=== PATIENT | male | born 1965 | race Caucasian/White ===

== ENCOUNTER 2019-03-16 16:18 | Emergency (ER) | payer OTHER ==
[~2019-03-16 16:18] MED LIST: Iopamidol 370 76% 100 ML VIAL ONE
--- NOTE | 2019-03-16 18:18 | CT ---
CT BRAIN WITHOUT CONTRAST: HISTORY: Headache. COMPARISON: None. FINDINGS: No acute hemorrhage or infarct. No midline shift or mass effect. Ventricular size and extraaxial CSF spaces are normal. The calvarium is intact. The paranasal sinuses and mastoids are clear. IMPRESSION: No acute intracranial abnormality. POS: HOME
[2019-03-16] MEDS ORDERED: Metoclopramide HCl 10 MG/2 ML VIAL ONE (18:45)
[2019-03-16] MEDS ORDERED: diphenhydrAMINE 50 MG/ML VIAL ONE (18:45)
[2019-03-16 19:07] LABS: #Basophils 0.1 thou/uL (0.0-0.2); #Eosinphils 0.3 thou/uL (0.0-0.7); #Monocytes 0.8 thou/uL (0.11-0.59); #Neutrophils 6.6 thou/uL (1.40-6.50); %Basophils 0.7 % (0.0-1.0); %Eosinophils 3.4 % (0.0-10.0); %Lymphocytes 20.6 % (21.0-51.0); %Monocytes 7.8 % (0.0-10.0); %Neutrophils 67.5 % (42.0-75.0); Hemoglobin 16.9 g/dL (14.0-18.0); Mean Corpuscular HGB CONC 32.8 g/dL (32.0-36.0); Mean Corpuscular Hemoglobin 31.6 pg (27.0-31.0); Mean Corpuscular Volume 96.3 fL (78.0-98.0); Mean Platelet Volume 7.2 fL (7.4-10.4); Platelet Count 204 thou/uL (130-400); RBC Distribution Width 12.7 % (11.5-14.5); Red Blood Cell (RBC) Count 5.36 mill/uL (4.70-6.10); White Blood Cell (WBC) Count 9.7 thou/uL (4.8-10.8)
[2019-03-16 19:24] LABS: ALT (SGPT) 40 U/L (8-55); AST (SGOT) 25 U/L (5-34); Albumin 4.5 g/dL (3.5-5.0); Alkaline Phosphatase 90 U/L (40-110); Anion Gap 12 mmol/L (10-20); BUN (Urea Nitrogen) 9 mg/dL (8.4-25.7); Calc. Creatinine Clearance 0 mL/min (70-130); Calcium 9.3 mg/dL (7.8-10.44); Carbon Dioxide 32 mmol/L (22-29); Chloride 100 mmol/L (98-107); Estimated GFR-MDRD 76; Globulin 2.9 g/dL (2.4-3.5); Glucose 81 mg/dL (70-105); Potassium 4.3 mmol/L (3.5-5.1); Protein, Total 7.4 g/dL (6.0-8.3); Sodium 140 mmol/L (136-145)
[2019-03-16] MEDS ORDERED: Magnesium 2 GM/50 ML BAG (IN WATER) ONE (19:25)
--- NOTE | 2019-03-16 19:48 | CT ---
CT ANGIO HEAD AND NECK WITH IV CONTRAST WITH 3D RECONSTRUCTIONS: HISTORY: Slurred speech. FINDINGS: NECK: The lung apices are clear. The thyroid gland is normal in appearance. Vocal cord region appears unremarkable. Parotid and submandibular gland regions appear unremarkable. Parapharyngeal spaces are clear. 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 The right vertebral artery is slightly smaller than the left and makes a sm aller contribution to the basilar artery. On the right side the right common, internal and external carotid arteries show no significant stenos is by NASCET criteria. The left side is also unremarkable. BRAIN: The anterior and middle cerebral arteries and their branches appear normal. No evidence of any intraluminal thrombus. The basilar artery and posterior cerebral arteries are normal. IMPRESSION: Unremarkable CT angio of head and neck. POS: DAMON
[2019-03-16] MEDS ORDERED: Bupivacaine 0.5% 10 ML VIAL ONE (20:17)
[2019-03-16] MEDS ORDERED: Ketorolac Tromethamine 30 MG/ML VIAL ONE (20:17)
== END 2019-03-16 22:26 | disposition home or self-care (01) ==
LOC: ERS 16:18
DX: R51 Headache (principal); E78.5 Hyperlipidemia, unspecified; K21.9 Gastro-esophageal reflux disease without esophagitis; G43.909 Migraine, unspecified, not intractable, without status migrainosus; Z79.899 Other long term (current) drug therapy
CPT/HCPCS: 70450; 70496; 70498; 80053; 85025; 85652; 86140; 93005; 96361; 96365; 96366; 96368; 96375; J1200; J1885; J2765; J3475; J3490; Q9967

== ENCOUNTER 2019-03-18 15:50 | Observation (INO) | payer OTHER ==
[2019-03-18] MEDS ORDERED: methylPREDNISolone Sod Succ/PF 125 MG/2 ML VIAL ONE (18:08)
[2019-03-18] MEDS ORDERED: diphenhydrAMINE 50 MG/ML VIAL ONE (18:08)
[2019-03-18] MEDS ORDERED: Acetaminophen 500 MG TAB ONE (18:08)
[2019-03-18] MEDS ORDERED: Metoclopramide HCl 10 MG/2 ML VIAL ONE (18:08)
[2019-03-18] MEDS ORDERED: Ketorolac Tromethamine 30 MG/ML VIAL ONE (18:42)
[2019-03-18] MEDS ORDERED: Ondansetron PF 4 MG/2 ML Vial IVP PRN (20:40)
[2019-03-18] MEDS ORDERED: Ondansetron ODT 4 MG TAB SL PRN (20:40)
[2019-03-18] MEDS ORDERED: Acetaminophen 325 MG TAB PO PRN (20:40)
[2019-03-18 21:30] VITALS: BMI 34.2
[2019-03-18] MEDS: diphenhydrAMINE 50 MG/ML VIAL IVP SCH (23:33)
[2019-03-18] MEDS: Metoclopramide HCl 10 MG/2 ML VIAL IVP SCH (23:36)
[2019-03-18] MEDS: methylPREDNISolone Sod Succ/PF 125 MG/2 ML VIAL IVP SCH (23:40)
[2019-03-19] MEDS: diphenhydrAMINE 50 MG/ML VIAL IVP SCH (06:01)
[2019-03-19] MEDS: Metoclopramide HCl 10 MG/2 ML VIAL IVP SCH (06:04)
[2019-03-19] MEDS: methylPREDNISolone Sod Succ/PF 125 MG/2 ML VIAL IVP SCH (06:09)
[2019-03-19] MEDS ORDERED: Metoclopramide HCl 10 MG/2 ML VIAL IVP PRN (08:26)
[2019-03-19] MEDS ORDERED: diphenhydrAMINE 50 MG/ML VIAL IVP PRN (08:27)
--- NOTE | 2019-03-19 09:38 | HP ---
CHIEF COMPLAINT: Intractable headaches with failed outpatient treatment. HISTORY OF PRESENT ILLNESS: The patient is a 53-year-old male with long history of recurrent headaches with a complicated medical background, who had already been to the emergency room at [facility] the day prior and had received trigger point injections into the septal area and had a cocktail of Reglan, Solu-Medrol, Benadryl. He responded well to these until the shots finally wear off at which point, he feels his headache stems from his cervical spine into the back of his neck, became much much worse. It originally began approximately 3 weeks ago. This is not his typical migraine which has responded well to monthly shots of Emgality. Those headaches have tremendously improved and now were left with cervical occipital type headache that in this case is intractable to outpatient management. PAST MEDICAL HISTORY: As mentioned above is complicated by long history of headaches. He also has a cardiac history with coronary artery disease, GERD, hyperlipidemia, high cholesterol. PAST SURGICAL HISTORY: Includes right knee surgery, traumatic brain injury, neck surgery with possible C-spine fusion. PSYCHIATRIC HISTORY: Complicated with depression. SOCIAL HISTORY: He is . Denies alcohol use. No smoking history. Denies illegal drug use. ALLERGIES: PENICILLIN AND SULFA. THEY BOTH GAVE HIM HIVES. MEDICATIONS: His medications on admission include; 1. Flexeril 10 mg t.i.d. p.r.n. 2. Zanaflex 2 mg q.6 hours p.r.n. 3. Amitriptyline 100 mg at bedtime. 4. Crestor 40 mg at bedtime. 5. Pantoprazole 40 mg daily. 6. Sertraline 50 mg daily. 7. Carvedilol 3.125 mg daily. 8. Vitamin C 1000 mg daily. 9. Tylenol No. 3 every 6 hours p.r.n. severe pain. REVIEW OF SYSTEMS: CONSTITUTIONAL: Significant for the aforementioned headache and neck pain. Denies fever, chills, fatigue. HEENT: No sores or lesions in eyes, ears, nose, or throat. CHEST: Denies shortness of breath or cough. CARDIOVASCULAR: Denies palpitations or chest pain. GI: Denies nausea, vomiting, or diarrhea. : Denies blood in urine or stool or dysuria. MUSCULOSKELETAL: Has significant pain in his neck with stiffness. I believe he may have had a cervical fusion in the past. MUSCULOSKELETAL: No upper extremity or lower extremity aches, pains, or lesions. SKIN: Without rashes or lesions. NEUROLOGIC: He is at his baseline. It is nonfocal. He does have severe neck pain going up into the base of his skull. PHYSICAL EXAMINATION: VITAL SIGNS: At the time of admission; blood pressure 137/99, pulse 98, respirations 19, temperature 98.7. Pain scale at a 6/10 at the time of arrival to the ER. O2 saturation 95% on room air. GENERAL: This is an obese , alert male, cooperative. HEENT: Normocephalic, atraumatic. Pupils are equal, round, and reactive to light. Extraocular muscles are intact. TMs, nares, and pharynx clear. NECK: Stiff with painful muscle spasms paracervically from trapezial origins to occipital insertions with diminished range of motion. CHEST: Clear to auscultation. HEART: Regular rate and rhythm without murmur. ABDOMEN: Soft and nontender without organomegaly. : Deferred. EXTREMITIES: Without clubbing, cyanosis, or edema. Normal range of motion in upper and lower extremities. SKIN: Without acute rashes or lesions. NEUROLOGICAL: Cranial nerves are intact. Gait and cerebellar function untested. Sensory exam is grossly intact. Mental status is at baseline. Nonfocal. LABORATORY DATA: Lab work on admission, repeat CT with and without contrast recently has shown unremarkable CT angio of head and neck. This was done on 03/16/2019. CT showed no acute intracranial abnormalities. He is scheduled for an MRI. The patient's additional surgical procedure was a colonoscopy done in December of this year. I did so feel add this to a surgical experience and they did find benign polyps. ASSESSMENT: 1. Cephalic and cervical origin headaches, intractable to outpatient management. 2. History of migraine headaches, responsive to Emgality monthly. 3. History of traumatic brain injury. 4. Hypertension. PLAN: Plan will be MRI of the brain, cocktail management of his migraines, neurological consultation, and serial re-evaluation. Job ID: [id number] [facility]
[2019-03-19] MEDS ORDERED: Acetaminophen/Codeine 30-300mg Tablet PO PRN (10:42)
[2019-03-19] MEDS ORDERED: Carvedilol 6.25 MG TAB PO SCH ×2 (11:30→21:00)
--- NOTE | 2019-03-19 13:35 | MRI ---
Exam: Brain MRI without contrast HISTORY: Headache COMPARISON: None FINDINGS: Calvarial marrow signal intensity: Appropriate T1 signal Gradient echo sequence: No hemorrhage Brain parenchyma: No mass, mass effect or midline shift. Brain volume, age-appropriate. Cortical tracy-white matter differentiation: Preserved Restricted diffusion: Central arterial flow voids are maintained. Absent restricted diffusion White matter signal intensities:Minimal scattered T2, FLAIR white matter hyperintensities due to oven builder alyson small vessel ischemic changes Sinuses: Adequate aeration of the paranasal sinuses and mastoid air cells. IMPRESSION: 1. Absent restricted diffusion. No acute infarct 2. No evidence of parenchymal mass. 2. Minimal chronic small vessel ischemic changes
[2019-03-19] MEDS: methylPREDNISolone Sod Succ/PF 125 MG/2 ML VIAL IVP PRN ×2 (13:36→18:44)
--- NOTE | 2019-03-19 13:41 | MRI ---
"PRELIMINARY REPORT" MRI CERVICAL SPINE WITHOUT CONTRAST: History: Reason For Study Comparison: CT angiogram of the neck 3 days prior. Findings: Cerebellar tonsils terminate at the level of the foramen magnum. There is congenital narrowing of the cervical spinal canal. The cord is thinned at the level of C4-C5, likely mild chronic myelomalacia. Paraspinal musculature is symmetric. No adenopathy. ACDF hardware at C3-C6. Levels are as follows: C2-C3: Advanced disc desiccation. Mild uncinate process hypertrophy. No significant neural foraminal or spinal canal narrowing. Spinal canal measures approximately 8 mm. C3-C4: Large left lateral recess disc osteophyte complex. Severe left neural foraminal narrowing. Mil d uncinate process hypertrophy on the right with mild-moderate neural foraminal narrowing. Spinal canal is narrowed to approximately 6 mm. C4-C5: Large posterior osteophyte, broad-based, extending into both subforaminal zones. Moderate to s evere left and right neural foraminal narrowing. Spinal canal is narrowed to approximately 6 mm. C5-C6: Circumferential disc osteophyte complex greatest in the subforaminal zones. Moderate right hyp ertrophic facet arthropathy. Spinal canal is narrowed to approximately 6 mm with cord abutment. Moderate to severe bilateral neural foraminal narrowing. C6-C7: Moderate degenerative disc space height loss and disc desiccation. Small circumferential disc bulge. Mild effacement of ventral CSF space. Spinal canal measures approximately 9 mm. Moderate bilateral neural foraminal narrowing. Impression: 1. High-grade multilevel neural foraminal narrowing due to posterior osteophytes with high-grade nerv e root impingement. 2. Abnormal narrowing of the spinal canal from C3-C6 with cord malacia at C4-C5. Transcribed Date/Time: 03/19/2019 1:48 PM
[2019-03-19] MEDS ORDERED: Cyclobenzaprine 10 MG TAB PO SCH (15:00)
[2019-03-19 15:37] VITALS: BP 140/84; TEMP 98.1
[2019-03-19] MEDS ORDERED: Amitriptyline HCl 100 MG TAB PO SCH (21:00)
[2019-03-19] MEDS ORDERED: FLU VACC QS2019-20(6MOS UP)/PF 60 MCG/0.5 ML SYRINGE IM ONE (21:00)
[2019-03-20] MEDS ORDERED: Ascorbic Acid 500 mg Chewable Tablet PO SCH (09:00)
[2019-03-20] MEDS ORDERED: Multivitamin W/ Minerals 1 TAB PO SCH (09:00)
== END 2019-03-19 19:00 | disposition home or self-care (01) ==
LOC: ERS 15:50 → 2SW 20:32
PROVIDERS: ADMIT Specialist; ATTEND Specialist
DX: R51 Headache (principal); I25.10 Atherosclerotic heart disease of native coronary artery without angina pectoris; K21.9 Gastro-esophageal reflux disease without esophagitis; E78.5 Hyperlipidemia, unspecified; E78.00 Pure hypercholesterolemia, unspecified; F32.9 Major depressive disorder, single episode, unspecified; M25.78 Osteophyte, vertebrae; M48.02 Spinal stenosis, cervical region; Z87.820 Personal history of traumatic brain injury; Z79.899 Other long term (current) drug therapy; Z88.0 Allergy status to penicillin; Z88.2 Allergy status to sulfonamides; Z98.1 Arthrodesis status
CPT/HCPCS: 70551; 72141; 96365; 96375; 96376; G0378; J1200; J1885; J2765; J2930

== ENCOUNTER 2019-04-21 07:28 | Day surgery (SDC) | payer OTHER ==
[2019-04-18 16:12] VITALS: BMI 34.7
[2019-04-21 08:04] VITALS: BP 113/84; TEMP 98.1
--- NOTE | 2019-04-21 09:48 | RAD ---
CERVICAL MYELOGRAM: HISTORY: Cervical radiculopathy. Degenerative disc disease. EXPOSURE: 1.7 minutes. 2033.8 mGy/m2. FINDINGS: Two-view lumbar spine marketing editor radiograph demonstrates 5 lumbar-type vertebral bodies. Vacuum disc phen omenon at L3-L4. Spondylolisthesis: 4.6 mm of anterolisthesis of L4 upon L5. 4.7 mm occlusive L5 upon S1. Vertebral body height is mainta ined. No fracture. Two views cervical spine: No prevertebral soft tissue swelling. Predental space is normal. Cervical spine vertebral body height is maintained, without evidence of fracture. There are anterior transvertebral body screws with associated fusion plate from C3 through C6. Disc prosthesis at C3-C4, C4-C5 and C5-C6. Straightening of normal cervical lordosis. No evidence of fractures or malalignment. Successful lumbar puncture at the L2-L3 level. A total of 9 cc of Isovue-M 300 contrast was administe red intrathecally. The patient tolerated the procedure well. No immediate or postprocedure complication. TECHNIQUE: Consent obtained to perform a lumbar puncture for a cervical myelogram. Patient's back was evaluated. The L2-L3 level was deemed appropriate. Skin was prepped and draped in a sterile fashion. 1% lidocaine, buffered with sodium bicarbonate was used for local anesthesia. Under fluoroscopic guidanc e, a 22-gauge spinal needle was advanced into the CSF space. There is prompt flow of CSF to the hub of the needle. Via a short tubing catheter, a total of 9 cc of Isovue-M 300 contrast was administered intrathecally. Patient tolerated the procedure well. No immediate or postprocedure complications. IMPRESSION: Successful lumbar puncture for cervical myelogram. Transcribed Date/Time: 04/21/2019 10:07 AM
--- NOTE | 2019-04-21 10:00 | CT ---
CT CERVICAL MYELOGRAM: INDICATIONS: Neck pain and disc degenerative disease COMPARISON: None. TECHNIQUE: Multiple CT images were obtained of the cervical spine following the intrathecal administration of an Isovue 300 Msolution. Please see the cervical myelogram for details concerning the injection technique. Axial, coronal, and sagittal reformatted images were constructed from the raw data. FINDINGS: Visualized posterior fossa and paravertebral soft tissues: Within normal limits Lung apices: Clear. Spinal alignment: Within normal limits. Spinal instrumentation or postsurgical change: There is an ACDF spanning C3-C6 with solid osseous inc orporation of interbody fibular strut graft. The instrumentation projects in the expected position without gross evidence of complication. Craniocervical junction and C1-C2: Appears within normal limits. At C2-C3, there is no appreciable central canal or neuroforaminal narrowing.. At C3-C4, there is a residual uncovertebral hypertrophy and facet hypertrophy inducing moderate left and mild right neural foraminal narrowing. At C4-C5, there is residual uncovertebral hypertrophy and facet joint degenerative change inducing mo derate to severe right and moderate left neural foraminal narrowing. There is a residual osteophyte complex causing [id number]-[id number] central canal narrowing with mild effacement of ventral spinal cord. At C5-C6, there is a residual osteophyte complex with uncovertebral hypertrophy and facet joint degen erative change inducing severe right and mild left neural foraminal narrowing. There is also mild to moderate central canal narrowing with mild ventral effacement of the spinal cord. At C6-C7, there is a broad-based osteophyte complex with mild right neural foraminal narrowing. At C7-T1, there is no appreciable central canal or neuroforaminal narrowing. IMPRESSION: 1. ACDF spanning C3-C6 with solid osseous incorporation of interbody fibular strut graft. 2. Residual multilevel neural foraminal narrowing at C3-4 through C5-6 due to uncovertebral hypertrop hy and facet degenerative change. 3. Mild/moderate central canal narrowing at C4-5 and C5-6 with mild ventral effacement of the spinal cord due to residual osteophytes.
== END 2019-04-21 10:15 | disposition home or self-care (01) ==
LOC: RAD 07:28
PROVIDERS: ATTEND Neurological Surgery
PROC: B02B1ZZ Computerized Tomography (CT Scan) of Spinal Cord using Low Osmolar Contrast (ICD-10-PCS; principal; 2019-04-21)
DX: M50.30 Other cervical disc degeneration, unspecified cervical region (principal); M54.12 Radiculopathy, cervical region; G47.00 Insomnia, unspecified; F43.10 Post-traumatic stress disorder, unspecified; F90.9 Attention-deficit hyperactivity disorder, unspecified type; Z79.899 Other long term (current) drug therapy; Z88.0 Allergy status to penicillin; Z88.2 Allergy status to sulfonamides; Z95.5 Presence of coronary angioplasty implant and graft
CPT/HCPCS: 62302; 72126

== ENCOUNTER 2019-07-27 22:21 | Inpatient (IN) | payer OTHER ==
[2019-07-27] MEDS ORDERED: Morphine 4 MG/ML VIAL ONE (22:40)
[2019-07-27 23:01] LABS: #Eosinphils 0.4 thou/uL (0.0-0.7); #Lymphocytes 2.8 thou/uL (1.20-3.40); #Monocytes 1.1 thou/uL (0.11-0.59); #Neutrophils 8.6 thou/uL (1.40-6.50); %Basophils 0.3 % (0.0-1.0); %Eosinophils 3.2 % (0.0-10.0); %Lymphocytes 21.6 % (21.0-51.0); %Monocytes 8.3 % (0.0-10.0); %Neutrophils 66.5 % (42.0-75.0); Hemoglobin 15.7 g/dL (14.0-18.0); Mean Corpuscular HGB CONC 32.9 g/dL (32.0-36.0); Mean Corpuscular Hemoglobin 32.1 pg (27.0-31.0); Mean Corpuscular Volume 97.5 fL (78.0-98.0); Mean Platelet Volume 7.4 fL (7.4-10.4); Platelet Count 270 thou/uL (130-400); RBC Distribution Width 12.5 % (11.5-14.5); Red Blood Cell (RBC) Count 4.88 mill/uL (4.70-6.10); White Blood Cell (WBC) Count 12.9 thou/uL (4.8-10.8)
[2019-07-27 23:12] LABS: ALT (SGPT) 37 U/L (8-55); AST (SGOT) 21 U/L (5-34); Albumin 4.5 g/dL (3.5-5.0); Alkaline Phosphatase 93 U/L (40-110); Anion Gap 17 mmol/L (10-20); BUN (Urea Nitrogen) 9 mg/dL (8.4-25.7); Bilirubin, Total 0.6 mg/dL (0.2-1.2); CK (CPK) 101 U/L (30-200); Calc. Creatinine Clearance 0 mL/min (70-130); Calcium 9.5 mg/dL (7.8-10.44); Carbon Dioxide 26 mmol/L (22-29); Chloride 99 mmol/L (98-107); Estimated GFR-MDRD 77; Globulin 3.2 g/dL (2.4-3.5); Glucose 100 mg/dL (70-105); Lipase 21 U/L (8-78); Potassium 3.5 mmol/L (3.5-5.1); Protein, Total 7.7 g/dL (6.0-8.3); Sodium 138 mmol/L (136-145)
--- NOTE | 2019-07-27 23:19 | RAD ---
Frontal radiograph chest: 07/27/2019 COMPARISON: None HISTORY: Shortness of breath FINDINGS: Lungs are clear. Heart and mediastinal contours are unremarkable. IMPRESSION: No acute findings.
--- NOTE | 2019-07-27 23:26 | CT ---
CT angiogram chest: 07/27/2019 COMPARISON: None HISTORY: Chest pain with shortness of breath TECHNIQUE: Axial CT imaging at 2.5 mm intervals through the chest with IV contrast using CT angiogram protocol with coronal and sagittal 3-D reformatted imaging FINDINGS: Imaged upper abdomen grossly unremarkable. No pleural, pericardial, or mediastinal fluid no lake. Left-sided coronary arterial calcification noted. No lymphadenopathy is noted within the chest. No evidence for acute pulmonary arterial embolism. No endobronchial lesion. No acute osseous abnormal ity. No acute pulmonary parenchymal abnormality. There is a pleural-based nodule within the right upper lobe on axial image 36 measuring 7 mm, similar when compared to a CT angiogram of the neck performed 03/16/2019. Mild linear density noted within the lingula on axial image 85, suggesting scar and/or volume loss. IMPRESSION: No acute findings. No evidence for acute pulmonary arterial embolism. Incidentally noted 7 mm pulmonary nodule within the right upper lobe. Recommend follow-up chest CT in 6 months. CODE T
[2019-07-27 23:33] LABS: CKMB 1.5 ng/mL (0-6.6)
[2019-07-27 23:37] LABS: Lactic Acid 1.3 mmol/L (0.5-2.2)
[2019-07-28] MEDS ORDERED: Aspirin 325 MG TAB ONE (01:00)
[2019-07-28 01:42] LABS: Bilirubin Negative (Negative); Blood, Urine Negative (Negative); Clarity Clear (Clear); Glucose, Urine (Dipstick) Negative (Negative); Leukocyte Negative (Negative); Nitrite Negative (Negative); Protein, Urine (Dipstick) Negative (Neg-Trace); Urobilinogen 0.2 mg/dL (Less than 2)
[2019-07-28 04:21] VITALS: BMI 34.7
[2019-07-28] MEDS ORDERED: Sodium Chloride 0.9% 1,000 ML IV SCH (07:45)
[2019-07-28] MEDS ORDERED: traMADol HCl 50 MG TAB PO PRN (08:11)
[2019-07-28] MEDS ORDERED: tiZANidine HCl 4 MG TAB PO PRN (08:12)
[2019-07-28 09:29] LABS: #Basophils 0.1 thou/uL (0.0-0.2); #Eosinphils 0.4 thou/uL (0.0-0.7); #Lymphocytes 2.8 thou/uL (1.20-3.40); #Monocytes 0.9 thou/uL (0.11-0.59); %Basophils 0.8 % (0.0-1.0); %Eosinophils 3.3 % (0.0-10.0); %Lymphocytes 25.2 % (21.0-51.0); %Monocytes 7.6 % (0.0-10.0); Hemoglobin 14.1 g/dL (14.0-18.0); Mean Corpuscular HGB CONC 33.2 g/dL (32.0-36.0); Mean Corpuscular Hemoglobin 32.6 pg (27.0-31.0); Mean Platelet Volume 7.2 fL (7.4-10.4); Platelet Count 243 thou/uL (130-400); RBC Distribution Width 12.5 % (11.5-14.5); Red Blood Cell (RBC) Count 4.33 mill/uL (4.70-6.10); White Blood Cell (WBC) Count 11.1 thou/uL (4.8-10.8)
[2019-07-28 09:49] LABS: Cardiac Risk 8.4 (Less than 4.5)
--- NOTE | 2019-07-28 12:13 | NM ---
EXAM: CARDIAC SPECT HISTORY: Dyspnea, coronary artery disease, stent placement, hypertension, dyslipidemia TECHNIQUE: A myocardial perfusion scan was performed using the single isotope 1 day protocol with facundo hnetium 99m sestamibi. [10 mCi] was injected intravenously for the rest exam followed by 30 mCi for the stress study. Pharmacologic stress with adenosine was monitored and interpreted by Linda Rodgers nurse practitioner FINDINGS: Homogeneous tracer distribution is seen in the myocardial segments on stress and rest image s without fixed or reversible defects. Gated SPECT LVEF: 65% Wall motion exam: Normal IMPRESSION: Normal myocardial perfusion scan
[2019-07-28] MEDS: Aspirin Chewable 81 MG TAB PO SCH (12:39)
[2019-07-28] MEDS: Carvedilol 3.125 MG TAB PO SCH ×2 (12:39→21:00)
[2019-07-28] MEDS: Sodium Chloride 0.9% 1,000 ML IV SCH ×3 (12:40→21:04)
--- NOTE | 2019-07-28 20:07 | CON ---
DATE OF CONSULTATION: HISTORY OF PRESENT ILLNESS: Claude Scott is a 53-year-old white male, who came to the emergency room last night with complaints of body aches, cough, and shortness of breath over the last 2 weeks. He denies any fever. He had increasing orthostatic dizziness and took his blood pressures 127 on sitting and 89 on standing. He was on carvedilol, but he stopped taking it 2 weeks ago. He does have history of coronary artery disease. Apparently, he had a stent placed in [place], [place] 3 or 4 years ago. He denies any chest discomfort. He had a borderline troponin I and Cardiology was consulted. PAST MEDICAL HISTORY: Hypertension in the past, coronary artery disease, hyperlipidemia, and migraine headaches. PAST SURGICAL HISTORY: Knee surgery, repair of ruptured Achilles, cervical laminectomy, and coronary artery stent placement. MEDICATIONS: 1. Amitriptyline 100 mg at bedtime. 2. Carvedilol 3.125 b.i.d. 3. Flexeril 10 t.i.d. 4. Protonix 40 daily. 5. Seroquel 12.5 at bedtime. 6. Rosuvastatin 40 daily. 7. Sertraline 50 at bedtime. ALLERGIES: PENICILLIN AND BACTRIM. SOCIAL HISTORY: He does not smoke. Rarely drinks. REVIEW OF SYSTEMS: Otherwise unremarkable. PHYSICAL EXAMINATION: VITAL SIGNS: Blood pressure 101/46 and pulse 78. HEENT: PERRL. NECK: Supple. CHEST: Clear. CARDIAC: S1 and S2 normal without any S3, S4, or murmurs. ABDOMEN: Obese. Normal bowel sounds. No tenderness. EXTREMITIES: Revealed no clubbing, cyanosis, or edema. NEUROLOGIC: Grossly intact. LABORATORY DATA: EKG revealed sinus tachycardia with rate of 117 per minute, possible old inferior infarction. Hemoglobin 14.1, hematocrit 42.4, white count 11,100, platelets 243,000, and D-dimer 0.81. Cholesterol 219, triglycerides 389 , HDL 26, and LDL 115 (the patient admits to not taking rosuvastatin regularly). Sodium 138, potassium 3.5, chloride 99, carbon dioxide 26, BUN 9, and creatinine 1.01. Troponin I 0.030 with 2 other troponin I's less than 0.010. The patient underwent adenosine Cardiolite testing, which revealed no evidence of ischemia. Ejection fraction was 65%. Influenza A and B are negative. IMPRESSION: 1. Shortness of breath, body aches, and orthostatic hypotension. Certainly the amitriptyline high dose may be contributing to his orthostasis. 2. History of coronary artery stent placement. Negative Cardiolite at this time. 3. Hypertension. 4. Hypercholesterolemia. PLAN: From a Cardiac standpoint, I do not feel that any further evaluation is warranted. Amitriptyline has been discontinued, this certainly may be playing a role in his orthostasis. Please contact us if there are further problems. Job ID: [id number] [facility]TD[facility]
[2019-07-28] MEDS ORDERED: Rosuvastatin 20 MG TAB PO SCH (21:00)
[2019-07-28] MEDS ORDERED: tiZANidine HCl 4 MG TAB PO SCH (21:00)
[2019-07-28] MEDS ORDERED: Zolpidem Tartrate 5 MG TAB PO SCH (21:00)
--- NOTE | 2019-07-28 21:56 | HP ---
CHIEF COMPLAINT: Shortness of breath with near-syncope and hypotension. He also had some chest pain with minimally elevated troponin and tachycardia. HISTORY OF PRESENT ILLNESS: The patient states that for approximately 2 weeks, he has been having dyspnea with minimal exertion. He was stand up quickly and nearly passed out, although he has not actually passed out. He has been dizzy and short winded. Ten days ago, he began to have body aches and a cough. Blood pressure on arrival was 89/60. He denies any fever. He also reports difficulty sleeping. He has mild pain chronically due to cervical foraminal stenosis. He rates at 2/10. Most recently, his cough was associated with body aches and shortness of breath and dizziness. During his evaluation in the emergency room on the day of admission, he had a slightly elevated D-dimer for which a CT scan was performed that failed to show any significant problems. The troponin was found to be minimally elevated, so he has been put into the hospital for further evaluation of this, although he has not had distinct chest discomfort other than with coughing. It is of note that when re-evaluating his medication, he has changed the dosage on some of his medication that has had a dramatic impact on his blood pressure. It is noteworthy that the main side effects are hypotension on both his quetiapine and his amitriptyline, these will be held to see if his blood pressure responds appropriately. This dosage change was not MD directed. 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 PAST SURGICAL HISTORY: Includes right knee surgery. Also, he has had neck surgery with possible cervical spine fusion. He has had surgery for a ruptured Achilles tendon. PAST PSYCHIATRIC HISTORY: Significant for anxiety, recurrent depression. SOCIAL HISTORY: He is . Denies alcohol use. No smoking. Denies illegal drug use. ALLERGIES: TO PENICILLIN AND SULFA. THEY BOTH GAVE HIM HIVES. MEDICATIONS ON ADMISSION: Include: 1. Cyclobenzaprine 10 mg p.r.n. 2. Pantoprazole 40 mg daily. 3. Sertraline 50 mg daily. 4. Carvedilol 3.125 mg b.i.d. 5. Tylenol No. 3 p.r.n. severe pain. 6. Quetiapine dosed originally at 25 mg daily, but he is down dosed it to 12.5 mg per day on his own. 7. Rosuvastatin 40 mg daily. 8. Testosterone 100 mg IM weekly. 9. Ajovy 225 mg injected subcu monthly. REVIEW OF SYSTEMS: CONSTITUTIONAL: He reports fatigue and dizziness, difficulty sleeping. HEENT: Denies drainage, sores or lesions in head, ears, eyes, nose, or throat. CHEST: He admits to coughing with shortness of breath, especially with minimal exertion. CARDIOVASCULAR: Denies chest pain per se or palpitations. GI: Negative for nausea, vomiting, or diarrhea. : Negative for dysuria, blood in urine or stool. MUSCULOSKELETAL: Generally weak with use. SKIN: No new rashes or lesions. NEUROLOGIC: Admits to chronic headaches that significantly improved with Ajovy. ENDOCRINE: No new swelling or no enlargement. PSYCHIATRIC: Maintains a chronic low-grade depression. Rarely reaching, what would be termed, remission. PHYSICAL EXAMINATION: At the time of admission, VITAL SIGNS: Blood pressure 140/89, pulse 118, temperature 98.3, pain scale 2/10, and O2 saturation 98% on room air. GENERAL: This is an obese, oriented, cooperative male, alert. HEENT: Normocephalic, atraumatic. Pupils are equal, round, and reactive to light. Extraocular muscles are intact. TMs, nares, and pharynx are clear. NECK: Supple. No mass. No bruits. CHEST: Clear to auscultation. HEART: Regular rate and rhythm without murmur. ABDOMEN: Obese. Unable to appreciate any organomegaly or tenderness. : Deferred. EXTREMITIES: Without clubbing, cyanosis, or edema. NEUROLOGIC: Currently unable to test gait and cerebellar function. Sensory exam is grossly intact. Mental status is significant for depression. LABORATORY DATA: Lab evaluation on admission, WBCs are 12.9, hemoglobin 15.7, hematocrit 47, and platelets 270, unremarkable diff. D-dimer slightly elevated at 0.8. Sodium 138, potassium 3.5, chloride 99, CO2 of 26, BUN 9, creatinine 1.00, GFR of 77, glucose 100, lactic acid 1.3, calcium 9.5. Liver functions unremarkable. Troponin I; one elevated at 0.03 with one, two, three, more evaluations are normal. Liver functions normal. Cortisol at 8:10 in the morning, 5.9; cholesterol total is 219; triglycerides 389; HDL is at 26; and LDL is at 115. TSH is 3.1. Urinalysis unremarkable. CT of the chest and thorax shows a small 6 to 7 mm nodule in the right upper lobe, there will need to be reassessed in 6 months. Otherwise, there are no acute findings and no PE. Chest x-ray also shows no acute disease. ASSESSMENT: 1. Orthostatic hypotension due to medication. 2. Chronic headaches. 3. Elevated troponin, possibly due to reactive tachycardia with low blood pressure. 4. Mismanagement of medication from noncompliance. 5. History of coronary artery disease. 6. Dyspnea on exertion, probably due to deconditioning and adverse reaction to mismanagement of medication. PLAN: 1. He is to hold medications that contribute to the orthostatic hypotension, i.e., amitriptyline and low-dose quetiapine. 2. Stress test to rule out cardiac disease. 3. Cardiology consultation with history of coronary artery disease. 4. Serial re-evaluation of these 2 medications. Job ID: [id number]
[2019-07-29 05:12] LABS: #Eosinphils 0.3 thou/uL (0.0-0.7); #Lymphocytes 2.2 thou/uL (1.20-3.40); #Monocytes 0.7 thou/uL (0.11-0.59); #Neutrophils 6.1 thou/uL (1.40-6.50); %Basophils 0.5 % (0.0-1.0); %Eosinophils 3.3 % (0.0-10.0); %Lymphocytes 23.4 % (21.0-51.0); %Neutrophils 64.9 % (42.0-75.0); Hemoglobin 12.9 g/dL (14.0-18.0); Mean Corpuscular HGB CONC 33.5 g/dL (32.0-36.0); Mean Corpuscular Volume 98.5 fL (78.0-98.0); Mean Platelet Volume 7.4 fL (7.4-10.4); Platelet Count 221 thou/uL (130-400); RBC Distribution Width 12.5 % (11.5-14.5); White Blood Cell (WBC) Count 9.3 thou/uL (4.8-10.8)
[2019-07-29] MEDS: Sodium Chloride 0.9% 1,000 ML IV SCH (05:47)
[2019-07-29] MEDS: Aspirin Chewable 81 MG TAB PO SCH (10:26)
[2019-07-29] MEDS: Carvedilol 3.125 MG TAB PO SCH (10:26)
--- NOTE | 2019-07-29 11:34 | EKG ---
Test Reason : Blood Pressure : / mmHG Vent. Rate : 085 BPM Atrial Rate : 085 BPM P-R Int : 162 ms QRS Dur : 076 ms QT Int : 362 ms P-R-T Axes : 048 -20 039 degrees QTc Int : 430 ms Normal sinus rhythm Low voltage QRS When compared with ECG of 27-JUL-2019 22:30, (Unconfirmed) Criteria for Inferior infarct are no longer Present Confirmed by LISETH LAL, SYovani ([id number]) on 07/29/2019 11:34:25 AM Referred By: CONRAD Confirmed By:DR. Mary CHILDERS MD
[2019-07-29 12:37] VITALS: BP 111/57; TEMP 97.6
== END 2019-07-29 13:10 | disposition home or self-care (01) | DRG 312 ==
LOC: ERS 22:21 → 2SW 07-28 01:35
PROVIDERS: ADMIT Specialist; ATTEND Specialist
DX: I95.2 Hypotension due to drugs (principal); T43.595A Adverse effect of other antipsychotics and neuroleptics, initial encounter; T43.015A Adverse effect of tricyclic antidepressants, initial encounter; I25.10 Atherosclerotic heart disease of native coronary artery without angina pectoris; K21.9 Gastro-esophageal reflux disease without esophagitis; E78.5 Hyperlipidemia, unspecified; G43.909 Migraine, unspecified, not intractable, without status migrainosus; F32.9 Major depressive disorder, single episode, unspecified; M48.02 Spinal stenosis, cervical region; G47.00 Insomnia, unspecified; R79.89 Other specified abnormal findings of blood chemistry; Z91.14 Patient's other noncompliance with medication regimen; Z88.1 Allergy status to other antibiotic agents
CPT/HCPCS: 36415; 36416; 51701; 71045; 71275; 78452; 80053; 80061; 81003; 82533; 82550; 82553; 83605; 83690; 83880; 84443; 84484; 85025; 85379; 87040; 87086; 87804; 93005; 93010; 93017; 93306; 94760; 96361; 96374; A9500; J0153; J2270; Q9967

== ENCOUNTER 2020-08-02 11:51 | Outpatient (CLI) | payer BC ==
[2020-08-03 04:20] LABS: SARS-CoV-2 PCR by NAA Not Detected (NotDetected)
== END 2020-08-02 11:52 | disposition home or self-care (01) ==
LOC: LABBT 11:51
PROVIDERS: ATTEND Specialist
DX: Z01.812 Encounter for preprocedural laboratory examination (principal); M96.1 Postlaminectomy syndrome, not elsewhere classified; G89.4 Chronic pain syndrome; M54.12 Radiculopathy, cervical region; Z20.822 Contact with and (suspected) exposure to COVID-19
CPT/HCPCS: 87635; U0003; U0005

== ENCOUNTER 2020-08-05 07:19 | Day surgery (SDC) | payer BC ==
[2020-08-03 17:11] VITALS: BMI 32.3
[2020-08-05] MEDS ORDERED: Bupivacaine PF 0.5% 30 ML VIAL ONE (08:07)
[2020-08-05] MEDS ORDERED: EPINEPHrine 1 MG/ML AMP ONE (08:07)
[2020-08-05] MEDS ORDERED: Fentanyl 100 MCG/2 ML VIAL ONE ×3 (08:30→13:44)
[2020-08-05 08:31] LABS: #Basophils 0.1 thou/uL (0.0-0.2); #Eosinphils 0.3 thou/uL (0.0-0.7); #Monocytes 0.7 thou/uL (0.11-0.59); #Neutrophils 3.8 thou/uL (1.40-6.50); %Eosinophils 3.8 % (0.0-10.0); %Lymphocytes 29.7 % (21.0-51.0); %Monocytes 10.2 % (0.0-10.0); %Neutrophils 55.3 % (42.0-75.0); Hemoglobin 15.5 g/dL (14.0-18.0); Mean Corpuscular HGB CONC 32.5 g/dL (32.0-36.0); Mean Corpuscular Hemoglobin 30.7 pg (27.0-31.0); Mean Corpuscular Volume 94.6 fL (78.0-98.0); Mean Platelet Volume 7.6 fL (7.4-10.4); Platelet Count 209 thou/uL (130-400); RBC Distribution Width 12.8 % (11.5-14.5); Red Blood Cell (RBC) Count 5.03 mill/uL (4.70-6.10); White Blood Cell (WBC) Count 6.8 thou/uL (4.8-10.8)
[2020-08-05 08:44] LABS: Anion Gap 13 mmol/L (10-20); BUN (Urea Nitrogen) 14 mg/dL (8.4-25.7); Calc. Creatinine Clearance 135 mL/min (70-130); Calcium 9.2 mg/dL (7.8-10.44); Carbon Dioxide 27 mmol/L (22-29); Chloride 103 mmol/L (98-107); Glucose 99 mg/dL (70-105); Potassium 4.7 mmol/L (3.5-5.1); Sodium 138 mmol/L (136-145)
[2020-08-05] MEDS ORDERED: Vancomycin 1 GM/200 ML BAG ONE (08:50)
[2020-08-05] MEDS ORDERED: Midazolam HCl 2 mg/2 ml Vial ONE (08:54)
[2020-08-05] MEDS ORDERED: Dexmedetomidine 200 MCG/2 ML VIAL ONE (09:00)
[2020-08-05] MEDS ORDERED: Ketamine 50 MG/ML (10ML VIAL) ONE (09:00)
[2020-08-05] MEDS ORDERED: Propofol 500 MG/50 ML VIAL ONE (09:02)
[2020-08-05] MEDS ORDERED: PROPOFOL 200 MG/20 ML VIAL ONE (09:04)
[2020-08-05] MEDS ORDERED: PROPOFOL 20 ML ONE (10:35)
[2020-08-05] MEDS ORDERED: Morphine 2 MG/ML VIAL ONE ×3 (12:07→13:03)
[2020-08-05] MEDS ORDERED: HYDROcodone/Acetaminophen 5/325 mg Tablet ONE (12:44)
[2020-08-05] MEDS ORDERED: methylPREDNISolone Sod Succ/PF 125 MG/2 ML VIAL ONE (13:44)
== END 2020-08-05 14:25 | disposition home or self-care (01) ==
LOC: SDC 07:19
PROVIDERS: ATTEND Specialist
PROC: 00HV0MZ Insertion of Neurostimulator Lead into Spinal Cord, Open Approach (ICD-10-PCS; principal; 2020-08-05)
PROC: 0JH70DZ Insertion of Multiple Array Stimulator Generator into Back Subcutaneous Tissue and Fascia, Open Approach (ICD-10-PCS; principal; 2020-08-05)
DX: M96.1 Postlaminectomy syndrome, not elsewhere classified (principal); G89.4 Chronic pain syndrome; M47.22 Other spondylosis with radiculopathy, cervical region; F43.10 Post-traumatic stress disorder, unspecified; F90.9 Attention-deficit hyperactivity disorder, unspecified type; G47.00 Insomnia, unspecified; I25.2 Old myocardial infarction; G47.30 Sleep apnea, unspecified; F17.290 Nicotine dependence, other tobacco product, uncomplicated; Z79.899 Other long term (current) drug therapy; Z88.0 Allergy status to penicillin; Z88.2 Allergy status to sulfonamides; Z95.5 Presence of coronary angioplasty implant and graft
CPT/HCPCS: 36415; 72020; 76000; 80048; 85025; 93005; 93010; C1778; C1787; J0171; J2250; J2270; J2704; J2930; J3010; J3370; L8687; L8689; S0020

== ENCOUNTER 2020-11-08 14:55 | Outpatient (CLI) | payer BC | END 2020-11-08 14:56 | disposition home or self-care (01) | LOC: BICRAD 14:55 | PROVIDERS: ATTEND Nurse Practitioner Family | DX: M25.561 Pain in right knee (principal) ==

== ENCOUNTER 2021-02-04 05:15 | Inpatient (IN) | payer BC ==
[2021-02-04] MEDS ORDERED: Aspirin 325 MG TAB ONE (05:49)
[2021-02-04 05:52] LABS: #Basophils 0.1 thou/uL (0.0-0.2); #Eosinphils 0.2 thou/uL (0.0-0.7); #Monocytes 0.6 thou/uL (0.11-0.59); #Neutrophils 4.1 thou/uL (1.40-6.50); %Basophils 0.8 % (0.0-1.0); %Eosinophils 2.9 % (0.0-10.0); %Lymphocytes 28.8 % (21.0-51.0); %Monocytes 8.6 % (0.0-10.0); %Neutrophils 58.9 % (42.0-75.0); Hemoglobin 14.7 g/dL (14.0-18.0); Mean Corpuscular HGB CONC 35.2 g/dL (32.0-36.0); Mean Corpuscular Volume 96.7 fL (78.0-98.0); Mean Platelet Volume 7.3 fL (7.4-10.4); Platelet Count 191 thou/uL (130-400); RBC Distribution Width 12.5 % (11.5-14.5); Red Blood Cell (RBC) Count 4.31 mill/uL (4.70-6.10)
[2021-02-04] MEDS ORDERED: Nitroglycerin 0.4 MG TAB 1 EACH ONE (05:56)
[2021-02-04 06:14] LABS: ALT (SGPT) 25 U/L (8-55); AST (SGOT) 20 U/L (5-34); Alkaline Phosphatase 100 U/L (40-110); Anion Gap 13 mmol/L (10-20); BUN (Urea Nitrogen) 14 mg/dL (8.4-25.7); Bilirubin, Total 0.3 mg/dL (0.2-1.2); Calc. Creatinine Clearance 0 mL/min (70-130); Calcium 9.3 mg/dL (7.8-10.44); Carbon Dioxide 25 mmol/L (22-29); Chloride 102 mmol/L (98-107); Globulin 2.8 g/dL (2.4-3.5); Glucose 114 mg/dL (70-105); Lipase 35 U/L (8-78); Potassium 3.9 mmol/L (3.5-5.1); Protein, Total 6.8 g/dL (6.0-8.3); Sodium 136 mmol/L (136-145)
[2021-02-04 06:43] LABS: CKMB 2.8 ng/mL (0-6.6)
[2021-02-04 08:45] LABS: Troponin I 0.415 ng/mL (< 0.028)
[2021-02-04 09:37] LABS: SARS-CoV-2 NAA Rapid Test Not Detected (NotDetected)
[2021-02-04] MEDS ORDERED: Nitroglycerin 0.4 MG TAB (25 Tab Bottle) SL PRN (11:55)
[2021-02-04 12:39] LABS: Troponin I 0.593 ng/mL (< 0.028)
[2021-02-04 17:13] VITALS: BMI 33.7
[2021-02-04] MEDS: HYDROcodone/Acetaminophen 10/325 mg Tablet PO PRN ×2 (17:28→23:42)
[2021-02-04] MEDS ORDERED: Enoxaparin Sodium 120 MG/0.8 ML SYRINGE SC SCH (17:45)
[2021-02-04] MEDS: Nitroglycerin 2% Ointment 1 INCH/1 GM Packet TOP SCH ×2 (18:42→23:42)
[2021-02-04] MEDS ORDERED: Carvedilol 3.125 MG TAB PO SCH (21:00)
[2021-02-04] MEDS: Zolpidem Tartrate 5 MG TAB PO SCH (21:13)
[2021-02-04] MEDS: Atorvastatin Calcium 20 MG TAB PO SCH (21:13)
[2021-02-05] MEDS: Nitroglycerin 2% Ointment 1 INCH/1 GM Packet TOP SCH ×4 (05:45→22:57)
[2021-02-05] MEDS: Enoxaparin Sodium 120 MG/0.8 ML SYRINGE SC SCH (07:59)
[2021-02-05] MEDS: Aspirin 325 MG TAB PO SCH (07:59)
[2021-02-05] MEDS: HYDROcodone/Acetaminophen 10/325 mg Tablet PO PRN ×4 (08:00→20:51)
[2021-02-05] MEDS: Zolpidem Tartrate 5 MG TAB PO SCH (20:51)
[2021-02-05] MEDS: Atorvastatin Calcium 20 MG TAB PO SCH (20:51)
[2021-02-06] MEDS: HYDROcodone/Acetaminophen 10/325 mg Tablet PO PRN ×5 (04:49→23:03)
[2021-02-06] MEDS: Nitroglycerin 2% Ointment 1 INCH/1 GM Packet TOP SCH ×3 (06:11→22:48)
[2021-02-06] MEDS: Enoxaparin Sodium 120 MG/0.8 ML SYRINGE SC SCH (09:03)
[2021-02-06] MEDS: Aspirin 325 MG TAB PO SCH (09:05)
[2021-02-06] MEDS ORDERED: Sodium Chloride 0.9% 1,000 ML IV SCH (09:15)
[2021-02-06] MEDS ORDERED: Communication Order-Pharmacy FS SCH (09:15)
[2021-02-06] MEDS: Atorvastatin Calcium 20 MG TAB PO SCH (20:26)
[2021-02-06] MEDS: Zolpidem Tartrate 5 MG TAB PO SCH (20:26)
[2021-02-07 05:55] LABS: Cardiac Risk 10.3 (Less than 4.5); Cholesterol 277 mg/dl (< 200 Desired); HDL Cholesterol 27 mg/dL (>60 Neg Risk); Triglycerides 700 mg/dL (Less than 150)
[2021-02-07] MEDS ORDERED: Sodium Chloride 0.9% 1,000 ML IV SCH ×2 (06:00→09:15)
[2021-02-07] MEDS: Nitroglycerin 2% Ointment 1 INCH/1 GM Packet TOP SCH (06:02)
[2021-02-07] MEDS ORDERED: Heparin 10,000 UNITS/ 10 ML VIAL ONE (07:23)
[2021-02-07] MEDS ORDERED: Fentanyl 100 MCG/2 ML VIAL ONE (08:06)
[2021-02-07] MEDS ORDERED: Midazolam HCl 2 mg/2 ml Vial ONE ×2 (08:06→11:39)
[2021-02-07] MEDS ORDERED: Heparin 25,000 units/D5W 500 ML ONE (08:35)
[2021-02-07] MEDS ORDERED: Aspirin 81 mg Enteric Coated Tablet PO SCH (09:00)
[2021-02-07] MEDS ORDERED: Sodium Chloride 0.9% 200 ML IV PRN (09:05)
[2021-02-07] MEDS ORDERED: Acetaminophen/Codeine 30-300mg Tablet PO PRN ×2 (09:05)
[2021-02-07] MEDS ORDERED: Nitroglycerin 0.4 MG TAB (25 Tab Bottle) SL PRN (09:05)
[2021-02-07] MEDS ORDERED: Heparin 10,000 UNITS/ 10 ML VIAL SLOW IVP SCH (09:15)
[2021-02-07] MEDS ORDERED: HYDROcodone/Acetaminophen 10/325 mg Tablet ONE (10:01)
[2021-02-07] MEDS ORDERED: Morphine 2 MG/ML VIAL ONE (10:12)
[2021-02-07] MEDS ORDERED: Communication Order-Pharmacy FS ONE (11:25)
[2021-02-07] MEDS ORDERED: Albumin 5% 500 ML ONE (11:27)
[2021-02-07] MEDS ORDERED: Levofloxacin 500 mg/D5W 100 ml Premix Bag ONE (11:35)
[2021-02-07] MEDS ORDERED: Fentanyl 250 MCG/5 ML VIAL ONE (11:39)
[2021-02-07] MEDS ORDERED: Phenylephrine 10 MG/ML VIAL ONE (11:39)
[2021-02-07] MEDS ORDERED: Thrombin 5000 UNITS/5 ML VIAL ONE (12:22)
[2021-02-07] MEDS ORDERED: Lidocaine 2% PF 100 mg/5 ml Syringe ONE (12:22)
[2021-02-07] MEDS ORDERED: Heparin 30,000 units/30 ml VIAL ONE (12:22)
[2021-02-07] MEDS ORDERED: Lidocaine 1% PF 5 ML VIAL ONE (12:22)
[2021-02-07] MEDS ORDERED: PHENYLEPHRINE-NS 100 MCG/ML 10 ML SYRINGE ONE ×2 (12:22→13:50)
[2021-02-07] MEDS ORDERED: Vecuronium 10 MG VIAL ONE (12:22)
[2021-02-07] MEDS ORDERED: PROPOFOL 200 MG/20 ML VIAL ONE (12:22)
[2021-02-07] MEDS ORDERED: Nitroglycerin 50 MG/250 ML BOT ONE (12:22)
[2021-02-07] MEDS ORDERED: Magnesium Sulfate 1 GM/2 ML VIAL ONE (12:22)
[2021-02-07] MEDS ORDERED: Rocuronium Bromide 10 MG/ML (10ML VIAL) ONE (12:22)
[2021-02-07] MEDS ORDERED: Heparin 5,000 UNITS/ML VIAL ONE (12:22)
[2021-02-07] MEDS ORDERED: Potassium Chloride 60 MEQ/30 ML VIAL ONE (12:22)
[2021-02-07] MEDS ORDERED: Cardioplegic Soln 1,000 ML BAG ONE (12:22)
[2021-02-07] MEDS ORDERED: Mannitol 12.5 GM/50 ML ONE (12:22)
[2021-02-07] MEDS ORDERED: Aminocaproic Acid 5 GM/20 ML VIAL ONE (12:22)
[2021-02-07] MEDS ORDERED: Sodium Bicarb 50 MEQ/50 ML Abboject 8.4% SYRINGE ONE ×2 (12:22→19:36)
[2021-02-07] MEDS ORDERED: Calcium Chloride 1 GM/10 ML Abboject SYRINGE ONE (12:22)
[2021-02-07] MEDS ORDERED: Papaverine 60 MG/2 ML VIAL ONE (12:22)
[2021-02-07] MEDS ORDERED: Protamine Sulfate 250 MG/25 ML VIAL ONE (12:22)
[2021-02-07] MEDS ORDERED: Iopamidol 370 76% 100 ML VIAL ONE (14:50)
[2021-02-07 16:34] LABS: Actual Bicarbonate (HCO3a) 22.6 mEq/L (22-28); Base Excess (BEa) -3.7 mEq/L (-2.0 to +3.0); CO2 Tension 45.9 mmHg (35.0-45.0); Calcium, Ionized (arterial) 1.19 mmol/L (1.12-1.30); Carboxyhemoglobin (COHb) 0.7 gm% (0.0-3.0); Hemoglobin (Hb) 14.2 g/dL (14.0-18.0); O2 Tension (PaO2), arterial 83.4 mmHg (80.0-100.0); Potassium - ABG Lab 5.21 mmol/L (3.70-5.30); pH, Arterial 7.31 (7.35-7.45)
[2021-02-07 16:36] LABS: Puncture Site Arterial Line
[2021-02-07 16:37] LABS: ALV-art Gradient 287.025 mmHg (0-20)
[2021-02-07] MEDS ORDERED: Bisacodyl 5 MG TAB PO PRN (16:48)
[2021-02-07] MEDS ORDERED: Ondansetron PF 4 MG/2 ML Vial IVP PRN (16:48)
[2021-02-07] MEDS ORDERED: DOPamine 400 MG/D5W 250 ML 250 ML IVPB PRN (16:48)
[2021-02-07] MEDS ORDERED: Norepinephrine 8 MG/0.9% NS 250 ML IVPB PRN (16:48)
[2021-02-07] MEDS ORDERED: Fentanyl 100 MCG/2 ML VIAL SLOW IVP PRN (16:48)
[2021-02-07] MEDS ORDERED: Potassium Chloride 20 MEQ/100 ML PREMIX BAG IVPB PRN (16:48)
[2021-02-07] MEDS ORDERED: Post-Op Insulin Drip Protocol IVPB ONE (16:48)
[2021-02-07] MEDS ORDERED: Mag-Al 1200 mg/1200 mg/30 ML UDCUP PO PRN (16:48)
[2021-02-07] MEDS ORDERED: hydrALAZINE 20 MG/ML VIAL SLOW IVP PRN (16:48)
[2021-02-07] MEDS ORDERED: Morphine 2 MG/ML VIAL SLOW IVP PRN (16:48)
[2021-02-07] MEDS ORDERED: Promethazine HCl 25 MG/ML VIAL IM PRN (16:48)
[2021-02-07] MEDS ORDERED: Nitroglycerin 50 MG/250 ML BOT 250 ML IVPB PRN (16:48)
[2021-02-07] MEDS ORDERED: Guaifenesin DM 100-10/5 ML UDCUP PO PRN (16:48)
[2021-02-07] MEDS ORDERED: niCARdipine 25 MG in Sodium Chloride 0.9% 250 ML 240 ML IVPB PRN (16:48)
[2021-02-07] MEDS ORDERED: Hetastarch 6% 500 ML 500 ML IVPB PRN (16:48)
[2021-02-07] MEDS ORDERED: oxyCODONE/Acetaminophen 5 mg/325 mg Tablet PO PRN (16:48)
[2021-02-07] MEDS ORDERED: Bisacodyl 10 MG SUPP PR PRN (16:48)
[2021-02-07] MEDS ORDERED: Nitroglycerin 50 MG/250 ML BOT 250 ML ONE (17:06)
[2021-02-07] MEDS: Lactated Ringer's 1,000 ML IV SCH (17:10)
[2021-02-07] MEDS ORDERED: Morphine 4 MG/ML VIAL ONE (17:17)
[2021-02-07 17:30] LABS: #Eosinphils 0.2 thou/uL (0.0-0.7); #Lymphocytes 1.3 thou/uL (1.20-3.40); #Monocytes 0.9 thou/uL (0.11-0.59); #Neutrophils 10.2 thou/uL (1.40-6.50); %Basophils 0.1 % (0.0-1.0); %Eosinophils 1.6 % (0.0-10.0); %Lymphocytes 10.4 % (21.0-51.0); %Monocytes 7.2 % (0.0-10.0); %Neutrophils 80.6 % (42.0-75.0); Hemoglobin 13.7 g/dL (14.0-18.0); Mean Corpuscular HGB CONC 32.8 g/dL (32.0-36.0); Mean Corpuscular Hemoglobin 32.4 pg (27.0-31.0); Mean Corpuscular Volume 98.9 fL (78.0-98.0); Mean Platelet Volume 7.9 fL (7.4-10.4); Platelet Count 145 thou/uL (130-400); RBC Distribution Width 12.6 % (11.5-14.5); Red Blood Cell (RBC) Count 4.23 mill/uL (4.70-6.10); White Blood Cell (WBC) Count 12.6 thou/uL (4.8-10.8)
[2021-02-07 17:35] LABS: INR-International Normal Ratio 1.2; PTT 29.8 sec (22.9-36.1)
[2021-02-07] MEDS: Insulin Regular 300 UNITS/3 ML VIAL SC PRN ×2 (17:42→21:01)
[2021-02-07] MEDS ORDERED: HUMULIN R 100 UNITS in Sodium Chloride 0.9% 100 ML IVPB SCH (17:45)
[2021-02-07] MEDS ORDERED: Dextrose 50% Abboject 50 ML SYRINGE SLOW IVP PRN (17:45)
[2021-02-07] MEDS ORDERED: Dextrose 5% in Water 1,000 ML IV PRN (17:45)
[2021-02-07 17:49] LABS: Anion Gap 13 mmol/L (10-20); BUN (Urea Nitrogen) 11 mg/dL (8.4-25.7); Calc. Creatinine Clearance 162 mL/min (70-130); Calcium 8.7 mg/dL (7.8-10.44); Carbon Dioxide 21 mmol/L (22-29); Chloride 106 mmol/L (98-107); Glucose 128 mg/dL (70-105); Potassium 5.3 mmol/L (3.5-5.1); Sodium 135 mmol/L (136-145)
[2021-02-07] MEDS: Ketorolac Tromethamine 30 MG/ML VIAL IVP SCH ×2 (18:08→23:09)
[2021-02-07 19:23] LABS: Actual Bicarbonate (HCO3a) 20.2 mEq/L (22-28); Base Excess (BEa) -5.2 mEq/L (-2.0 to +3.0); CO2 Tension 38.9 mmHg (35.0-45.0); Calcium, Ionized (arterial) 1.15 mmol/L (1.12-1.30); Carboxyhemoglobin (COHb) 0.8 gm% (0.0-3.0); Hemoglobin (Hb) 14.9 g/dL (14.0-18.0); O2 Tension (PaO2), arterial 85.6 mmHg (80.0-100.0); Potassium - ABG Lab 4.69 mmol/L (3.70-5.30); pH, Arterial 7.33 (7.35-7.45)
[2021-02-07 19:26] LABS: ALV-art Gradient 150.975 mmHg (0-20); Puncture Site LINE
[2021-02-07] MEDS: Fentanyl 100 MCG/2 ML VIAL SLOW IVP PRN ×2 (20:01→22:05)
[2021-02-07] MEDS: Famotidine/PF 20 mg/2ml Vial SLOW IVP SCH (20:10)
[2021-02-07] MEDS ORDERED: Atorvastatin Calcium 20 MG TAB PO SCH (21:00)
[2021-02-07] MEDS: oxyCODONE/Acetaminophen 5 mg/325 mg Tablet PO PRN (21:00)
[2021-02-07] MEDS: Enoxaparin Sodium 40 MG/0.4 ML SYRINGE SC SCH (21:05)
[2021-02-07 22:51] LABS: Potassium 4.6 mmol/L (3.5-5.1)
[2021-02-08] MEDS: Fentanyl 100 MCG/2 ML VIAL SLOW IVP PRN ×8 (00:05→22:10)
[2021-02-08] MEDS: oxyCODONE/Acetaminophen 5 mg/325 mg Tablet PO PRN ×4 (01:57→21:44)
[2021-02-08] MEDS: Lactated Ringer's 1,000 ML IV SCH ×3 (02:39→22:17)
[2021-02-08] MEDS: Acetaminophen 325 MG TAB PO PRN (05:11)
[2021-02-08] MEDS: Ketorolac Tromethamine 30 MG/ML VIAL IVP SCH ×4 (06:13→23:38)
[2021-02-08 07:40] LABS: #Eosinphils 0.1 thou/uL (0.0-0.7); #Lymphocytes 0.8 thou/uL (1.20-3.40); #Monocytes 1.6 thou/uL (0.11-0.59); #Neutrophils 10.3 thou/uL (1.40-6.50); %Basophils 0.4 % (0.0-1.0); %Eosinophils 0.5 % (0.0-10.0); %Lymphocytes 6.5 % (21.0-51.0); %Monocytes 12.3 % (0.0-10.0); %Neutrophils 80.3 % (42.0-75.0); Hemoglobin 13.3 g/dL (14.0-18.0); Mean Corpuscular HGB CONC 31.6 g/dL (32.0-36.0); Mean Corpuscular Hemoglobin 31.8 pg (27.0-31.0); Mean Platelet Volume 7.8 fL (7.4-10.4); Platelet Count 186 thou/uL (130-400); RBC Distribution Width 12.8 % (11.5-14.5); Red Blood Cell (RBC) Count 4.19 mill/uL (4.70-6.10); White Blood Cell (WBC) Count 12.8 thou/uL (4.8-10.8)
[2021-02-08 07:57] LABS: Anion Gap 14 mmol/L (10-20); BUN (Urea Nitrogen) 12 mg/dL (8.4-25.7); Calc. Creatinine Clearance 130 mL/min (70-130); Calcium 8.4 mg/dL (7.8-10.44); Carbon Dioxide 26 mmol/L (22-29); Chloride 103 mmol/L (98-107); Glucose 133 mg/dL (70-105); Potassium 5.1 mmol/L (3.5-5.1); Sodium 138 mmol/L (136-145)
[2021-02-08] MEDS: Polyethylene Glycol 3350 17 GM Packet PO SCH (08:51)
[2021-02-08] MEDS: Aspirin 325 MG TAB PO SCH (08:52)
[2021-02-08] MEDS: Famotidine/PF 20 mg/2ml Vial SLOW IVP SCH ×2 (08:53→20:23)
[2021-02-08] MEDS ORDERED: Cyclobenzaprine 10 MG TAB PO PRN ×2 (10:52→11:00)
[2021-02-08] MEDS: Atorvastatin Calcium 40 MG TAB PO SCH (20:23)
[2021-02-08] MEDS: Gabapentin 300 MG CAP PO SCH (20:23)
[2021-02-08] MEDS: Enoxaparin Sodium 40 MG/0.4 ML SYRINGE SC SCH (20:24)
[2021-02-08] MEDS: Zolpidem Tartrate 5 MG TAB PO PRN (22:05)
[2021-02-09 04:43] LABS: Anion Gap 10 mmol/L (10-20); BUN (Urea Nitrogen) 13 mg/dL (8.4-25.7); Calc. Creatinine Clearance 171 mL/min (70-130); Calcium 8.2 mg/dL (7.8-10.44); Carbon Dioxide 26 mmol/L (22-29); Chloride 104 mmol/L (98-107); Glucose 108 mg/dL (70-105); Potassium 4.1 mmol/L (3.5-5.1); Sodium 136 mmol/L (136-145)
[2021-02-09] MEDS: Fentanyl 100 MCG/2 ML VIAL SLOW IVP PRN ×3 (04:49→14:27)
[2021-02-09 05:35] LABS: #Eosinphils 0.1 thou/uL (0.0-0.7); #Lymphocytes 1.6 thou/uL (1.20-3.40); #Monocytes 1.1 thou/uL (0.11-0.59); #Neutrophils 7.9 thou/uL (1.40-6.50); %Basophils 0.2 % (0.0-1.0); %Lymphocytes 14.9 % (21.0-51.0); %Monocytes 10.5 % (0.0-10.0); %Neutrophils 73.4 % (42.0-75.0); Hemoglobin 10.7 g/dL (14.0-18.0); Mean Corpuscular HGB CONC 34.3 g/dL (32.0-36.0); Mean Corpuscular Hemoglobin 34.1 pg (27.0-31.0); Mean Corpuscular Volume 99.4 fL (78.0-98.0); Mean Platelet Volume 8.2 fL (7.4-10.4); Platelet Count 152 thou/uL (130-400); RBC Distribution Width 12.4 % (11.5-14.5); Red Blood Cell (RBC) Count 3.13 mill/uL (4.70-6.10); White Blood Cell (WBC) Count 10.8 thou/uL (4.8-10.8)
[2021-02-09] MEDS: Ketorolac Tromethamine 30 MG/ML VIAL IVP SCH ×3 (06:12→18:08)
[2021-02-09] MEDS: oxyCODONE/Acetaminophen 5 mg/325 mg Tablet PO PRN ×2 (06:18→20:32)
[2021-02-09] MEDS: Gabapentin 300 MG CAP PO SCH ×3 (08:28→20:25)
[2021-02-09] MEDS: Polyethylene Glycol 3350 17 GM Packet PO SCH (08:28)
[2021-02-09] MEDS: Aspirin 325 MG TAB PO SCH (08:28)
[2021-02-09] MEDS: Famotidine/PF 20 mg/2ml Vial SLOW IVP SCH (08:32)
[2021-02-09] MEDS ORDERED: Nitroglycerin 0.4 MG TAB (25 Tab Bottle) SL PRN (09:07)
[2021-02-09] MEDS ORDERED: Mineral Oil ENEMA PR PRN (09:07)
[2021-02-09] MEDS: Lactated Ringer's 1,000 ML IV SCH (12:28)
[2021-02-09] MEDS: Famotidine 20 MG TAB PO SCH ×2 (12:52→20:26)
[2021-02-09] MEDS: Potassium Chloride 10 MEQ TAB PO SCH (12:53)
[2021-02-09] MEDS: Furosemide 40 MG TAB PO SCH (12:53)
[2021-02-09] MEDS: Enoxaparin Sodium 40 MG/0.4 ML SYRINGE SC SCH (20:26)
[2021-02-09] MEDS: Zolpidem Tartrate 5 MG TAB PO PRN (20:26)
[2021-02-09] MEDS: Atorvastatin Calcium 40 MG TAB PO SCH (20:26)
[2021-02-10] MEDS: Ketorolac Tromethamine 30 MG/ML VIAL IVP SCH ×4 (00:10→17:30)
[2021-02-10] MEDS: Polyethylene Glycol 3350 17 GM Packet PO SCH (08:29)
[2021-02-10] MEDS: Gabapentin 300 MG CAP PO SCH ×3 (08:30→20:53)
[2021-02-10] MEDS: Famotidine 20 MG TAB PO SCH ×2 (08:30→20:53)
[2021-02-10] MEDS: Aspirin 325 MG TAB PO SCH (08:30)
[2021-02-10] MEDS: Metoprolol Tartrate 25 MG TAB PO SCH ×2 (08:31→20:53)
[2021-02-10] MEDS: Potassium Chloride 10 MEQ TAB PO SCH (08:31)
[2021-02-10] MEDS: Furosemide 40 MG TAB PO SCH (08:31)
[2021-02-10 09:21] LABS: #Eosinphils 0.2 thou/uL (0.0-0.7); #Lymphocytes 1.7 thou/uL (1.20-3.40); #Monocytes 1.2 thou/uL (0.11-0.59); #Neutrophils 6.8 thou/uL (1.40-6.50); %Basophils 0.4 % (0.0-1.0); %Eosinophils 2.4 % (0.0-10.0); %Lymphocytes 16.9 % (21.0-51.0); %Monocytes 11.9 % (0.0-10.0); %Neutrophils 68.5 % (42.0-75.0); Hemoglobin 9.9 g/dL (14.0-18.0); Mean Corpuscular HGB CONC 32.2 g/dL (32.0-36.0); Mean Corpuscular Volume 99.4 fL (78.0-98.0); Mean Platelet Volume 7.9 fL (7.4-10.4); Platelet Count 176 thou/uL (130-400); RBC Distribution Width 12.2 % (11.5-14.5); Red Blood Cell (RBC) Count 3.09 mill/uL (4.70-6.10); White Blood Cell (WBC) Count 9.9 thou/uL (4.8-10.8)
[2021-02-10] MEDS: oxyCODONE/Acetaminophen 5 mg/325 mg Tablet PO PRN ×2 (09:44→20:53)
[2021-02-10] MEDS: Zolpidem Tartrate 5 MG TAB PO PRN (20:52)
[2021-02-10] MEDS: Atorvastatin Calcium 40 MG TAB PO SCH (20:52)
[2021-02-10] MEDS: Enoxaparin Sodium 40 MG/0.4 ML SYRINGE SC SCH (20:53)
[2021-02-11 05:07] LABS: #Eosinphils 0.3 thou/uL (0.0-0.7); #Lymphocytes 1.7 thou/uL (1.20-3.40); #Monocytes 0.9 thou/uL (0.11-0.59); #Neutrophils 5.3 thou/uL (1.40-6.50); %Basophils 0.4 % (0.0-1.0); %Eosinophils 3.3 % (0.0-10.0); %Lymphocytes 21.1 % (21.0-51.0); %Monocytes 10.5 % (0.0-10.0); %Neutrophils 64.7 % (42.0-75.0); Mean Corpuscular HGB CONC 34.4 g/dL (32.0-36.0); Mean Corpuscular Hemoglobin 34.3 pg (27.0-31.0); Mean Corpuscular Volume 99.5 fL (78.0-98.0); Platelet Count 173 thou/uL (130-400); RBC Distribution Width 12.3 % (11.5-14.5); Red Blood Cell (RBC) Count 2.62 mill/uL (4.70-6.10); White Blood Cell (WBC) Count 8.1 thou/uL (4.8-10.8)
[2021-02-11 05:30] LABS: Anion Gap 13 mmol/L (10-20); BUN (Urea Nitrogen) 17 mg/dL (8.4-25.7); Calc. Creatinine Clearance 114 mL/min (70-130); Calcium 7.8 mg/dL (7.8-10.44); Carbon Dioxide 25 mmol/L (22-29); Chloride 102 mmol/L (98-107); Glucose 104 mg/dL (70-105); Potassium 3.8 mmol/L (3.5-5.1); Sodium 136 mmol/L (136-145)
[2021-02-11] MEDS: Polyethylene Glycol 3350 17 GM Packet PO SCH (08:45)
[2021-02-11] MEDS: Bisacodyl 5 MG TAB PO SCH (08:45)
[2021-02-11] MEDS: Gabapentin 300 MG CAP PO SCH ×3 (08:46→20:50)
[2021-02-11] MEDS: Famotidine 20 MG TAB PO SCH ×2 (08:46→20:50)
[2021-02-11] MEDS: Metoprolol Tartrate 25 MG TAB PO SCH ×2 (08:46→21:20)
[2021-02-11] MEDS: Potassium Chloride 10 MEQ TAB PO SCH (08:46)
[2021-02-11] MEDS: Furosemide 40 MG TAB PO SCH (08:47)
[2021-02-11] MEDS: Aspirin 325 MG TAB PO SCH (08:47)
[2021-02-11] MEDS: oxyCODONE/Acetaminophen 5 mg/325 mg Tablet PO PRN ×3 (08:54→20:59)
[2021-02-11 18:49] LABS: SARS-CoV-2 PCR by NAA Not Detected (NotDetected)
[2021-02-11] MEDS: Enoxaparin Sodium 40 MG/0.4 ML SYRINGE SC SCH (20:48)
[2021-02-11] MEDS: Atorvastatin Calcium 40 MG TAB PO SCH (20:49)
[2021-02-11] MEDS: Zolpidem Tartrate 5 MG TAB PO PRN (20:49)
[2021-02-12 05:19] LABS: #Eosinphils 0.2 thou/uL (0.0-0.7); #Lymphocytes 1.2 thou/uL (1.20-3.40); #Neutrophils 6.1 thou/uL (1.40-6.50); %Basophils 0.5 % (0.0-1.0); %Eosinophils 2.5 % (0.0-10.0); %Lymphocytes 13.8 % (21.0-51.0); %Monocytes 11.6 % (0.0-10.0); %Neutrophils 71.7 % (42.0-75.0); Hemoglobin 8.3 g/dL (14.0-18.0); Mean Corpuscular Hemoglobin 33.3 pg (27.0-31.0); Mean Corpuscular Volume 98.1 fL (78.0-98.0); Mean Platelet Volume 7.8 fL (7.4-10.4); Platelet Count 210 thou/uL (130-400); RBC Distribution Width 12.1 % (11.5-14.5); Red Blood Cell (RBC) Count 2.48 mill/uL (4.70-6.10); White Blood Cell (WBC) Count 8.5 thou/uL (4.8-10.8)
[2021-02-12 05:43] LABS: Anion Gap 11 mmol/L (10-20); BUN (Urea Nitrogen) 16 mg/dL (8.4-25.7); Calc. Creatinine Clearance 129 mL/min (70-130); Calcium 8.3 mg/dL (7.8-10.44); Carbon Dioxide 27 mmol/L (22-29); Chloride 101 mmol/L (98-107); Glucose 103 mg/dL (70-105); Potassium 3.9 mmol/L (3.5-5.1); Sodium 135 mmol/L (136-145)
[2021-02-12] MEDS: oxyCODONE/Acetaminophen 5 mg/325 mg Tablet PO PRN ×4 (06:15→23:51)
[2021-02-12] MEDS: Furosemide 40 MG TAB PO SCH (08:09)
[2021-02-12] MEDS: Bisacodyl 5 MG TAB PO SCH (08:09)
[2021-02-12] MEDS: Aspirin 325 MG TAB PO SCH (08:10)
[2021-02-12] MEDS: Gabapentin 300 MG CAP PO SCH ×3 (08:10→21:32)
[2021-02-12] MEDS: Famotidine 20 MG TAB PO SCH ×2 (08:10→21:34)
[2021-02-12] MEDS: Metoprolol Tartrate 25 MG TAB PO SCH ×2 (08:10→21:29)
[2021-02-12] MEDS: Polyethylene Glycol 3350 17 GM Packet PO SCH (08:11)
[2021-02-12] MEDS: Potassium Chloride 10 MEQ TAB PO SCH (08:11)
[2021-02-12] MEDS ORDERED: Icosapent Ethyl 1 GM CAPSULE PO SCH (09:30)
[2021-02-12] MEDS ORDERED: Iopamidol-370 76% 500 ML 1 ML ONE (10:33)
[2021-02-12 12:16] LABS: Hemoglobin 9.3 g/dL (14.0-18.0); Platelet Count 226 thou/uL (130-400)
[2021-02-12] MEDS ORDERED: Furosemide 20 MG/2 ML VIAL SLOW IVP PRN (13:03)
[2021-02-12] MEDS: Icosapent Ethyl 1 GM CAPSULE PO SCH (17:11)
[2021-02-12] MEDS: Atorvastatin Calcium 40 MG TAB PO SCH (21:32)
[2021-02-12] MEDS: MULTIVIT/IRON SULF/FOLIC ACID 1 EACH TAB PO SCH (21:42)
[2021-02-12] MEDS: Zolpidem Tartrate 5 MG TAB PO PRN (21:45)
[2021-02-13 04:55] LABS: #Eosinphils 0.3 thou/uL (0.0-0.7); #Lymphocytes 1.5 thou/uL (1.20-3.40); #Monocytes 0.9 thou/uL (0.11-0.59); #Neutrophils 5.4 thou/uL (1.40-6.50); %Basophils 0.2 % (0.0-1.0); %Eosinophils 3.2 % (0.0-10.0); %Lymphocytes 18.4 % (21.0-51.0); %Neutrophils 67.1 % (42.0-75.0); Hemoglobin 9.2 g/dL (14.0-18.0); Mean Corpuscular Hemoglobin 34.3 pg (27.0-31.0); Mean Platelet Volume 7.3 fL (7.4-10.4); Platelet Count 212 thou/uL (130-400); RBC Distribution Width 12.4 % (11.5-14.5); Red Blood Cell (RBC) Count 2.69 mill/uL (4.70-6.10); White Blood Cell (WBC) Count 8.1 thou/uL (4.8-10.8)
[2021-02-13 05:18] LABS: Anion Gap 11 mmol/L (10-20); BUN (Urea Nitrogen) 14 mg/dL (8.4-25.7); Calc. Creatinine Clearance 152 mL/min (70-130); Calcium 8.3 mg/dL (7.8-10.44); Carbon Dioxide 27 mmol/L (22-29); Chloride 103 mmol/L (98-107); Glucose 97 mg/dL (70-105); Potassium 4.1 mmol/L (3.5-5.1); Sodium 137 mmol/L (136-145)
[2021-02-13] MEDS: oxyCODONE/Acetaminophen 5 mg/325 mg Tablet PO PRN ×2 (07:48→14:02)
[2021-02-13] MEDS ORDERED: Aspirin 81 mg Enteric Coated Tablet PO SCH (09:00)
[2021-02-13] MEDS: Polyethylene Glycol 3350 17 GM Packet PO SCH (09:18)
[2021-02-13] MEDS: Icosapent Ethyl 1 GM CAPSULE PO SCH (09:18)
[2021-02-13] MEDS: Metoprolol Tartrate 25 MG TAB PO SCH (09:18)
[2021-02-13] MEDS: Bisacodyl 5 MG TAB PO SCH (09:19)
[2021-02-13] MEDS: Furosemide 40 MG TAB PO SCH (09:19)
[2021-02-13] MEDS: Potassium Chloride 10 MEQ TAB PO SCH (09:19)
[2021-02-13] MEDS: Gabapentin 300 MG CAP PO SCH ×2 (09:20→15:23)
[2021-02-13] MEDS: Famotidine 20 MG TAB PO SCH (09:20)
[2021-02-13] MEDS: MULTIVIT/IRON SULF/FOLIC ACID 1 EACH TAB PO SCH (09:21)
[2021-02-13] MEDS ORDERED: Carvedilol 3.125 MG TAB PO SCH ×2 (09:45→17:00)
[2021-02-13] MEDS: Acetaminophen 325 MG TAB PO PRN (11:04)
[2021-02-13 12:24] VITALS: BP 100/59; TEMP 98.6
== END 2021-02-13 15:55 | disposition home or self-care (01) | DRG 233 ==
LOC: ERS 05:15 → ERHOLD 06:51 → 2SW 11:37 → CCU 02-07 09:57 → 2SE 02-09 11:08 → 2NO 02-09 12:30
PROVIDERS: ADMIT Specialist; ATTEND Specialist
PROC: 5A09357 Assistance with Respiratory Ventilation, Less than 24 Consecutive Hours, Continuous Positive Airway Pressure (ICD-10-PCS; 2021-02-04)
PROC: 02100AW Bypass Coronary Artery, One Artery from Aorta with Autologous Arterial Tissue, Open Approach (ICD-10-PCS; principal; 2021-02-07)
PROC: 4A023N7 Measurement of Cardiac Sampling and Pressure, Left Heart, Percutaneous Approach (ICD-10-PCS; 2021-02-07)
PROC: 021109W Bypass Coronary Artery, Two Arteries from Aorta with Autologous Venous Tissue, Open Approach (ICD-10-PCS; 2021-02-07)
PROC: 06BP0ZZ Excision of Right Saphenous Vein, Open Approach (ICD-10-PCS; 2021-02-07)
PROC: 03BC0ZZ Excision of Left Radial Artery, Open Approach (ICD-10-PCS; 2021-02-07)
PROC: 5A1221Z Performance of Cardiac Output, Continuous (ICD-10-PCS; 2021-02-07)
PROC: B2111ZZ Fluoroscopy of Multiple Coronary Arteries using Low Osmolar Contrast (ICD-10-PCS; 2021-02-07)
PROC: B2151ZZ Fluoroscopy of Left Heart using Low Osmolar Contrast (ICD-10-PCS; 2021-02-07)
PROC: 30233N1 Transfusion of Nonautologous Red Blood Cells into Peripheral Vein, Percutaneous Approach (ICD-10-PCS; 2021-02-12)
DX: I21.4 Non-ST elevation (NSTEMI) myocardial infarction (principal); J18.9 Pneumonia, unspecified organism; I25.110 Atherosclerotic heart disease of native coronary artery with unstable angina pectoris; Z20.822 Contact with and (suspected) exposure to COVID-19; I10 Essential (primary) hypertension; K21.9 Gastro-esophageal reflux disease without esophagitis; G43.909 Migraine, unspecified, not intractable, without status migrainosus; M96.1 Postlaminectomy syndrome, not elsewhere classified; E29.1 Testicular hypofunction; G47.00 Insomnia, unspecified; F43.10 Post-traumatic stress disorder, unspecified; F41.9 Anxiety disorder, unspecified; F32.A Depression, unspecified; G89.4 Chronic pain syndrome; F17.290 Nicotine dependence, other tobacco product, uncomplicated; I08.1 Rheumatic disorders of both mitral and tricuspid valves; E66.01 Morbid (severe) obesity due to excess calories; G47.33 Obstructive sleep apnea (adult) (pediatric); I25.5 Ischemic cardiomyopathy; Y95 Nosocomial condition; R11.10 Vomiting, unspecified; R00.0 Tachycardia, unspecified; Z95.5 Presence of coronary angioplasty implant and graft; Z78.1 Physical restraint status; Z98.1 Arthrodesis status; Z87.820 Personal history of traumatic brain injury; Z88.0 Allergy status to penicillin; Z88.2 Allergy status to sulfonamides; Z79.899 Other long term (current) drug therapy; Z68.36 Body mass index [BMI] 36.0-36.9, adult
CPT/HCPCS: 36415; 36416; 36430; 71045; 71275; 76942; 80048; 80053; 80061; 82533; 82553; 82805; 82947; 83690; 83880; 84484; 85025; 85347; 85610; 85730; 86850; 86900; 86901; 87040; 93005; 93010; 93306; 93458; 93798; 94002; 99152; 99153; J1644; J1650; J1815; J1885; J1956; J2001; J2150; J2250; J2270; J2370; J2405; J2440; J2704; J2720; J3010; J3370; J3475; J3480; J7050; J7120; P9016; P9045; Q9967; S0017; S0028; U0002; U0003; U0005

== ENCOUNTER 2022-03-12 20:04 | Inpatient (IN) | payer BC ==
[2022-03-12 20:57] LABS: #Basophils 0.1 thou/uL (0.0-0.2); #Lymphocytes 2.1 thou/uL (1.20-3.40); #Monocytes 0.6 thou/uL (0.11-0.59); #Neutrophils 3.6 thou/uL (1.40-6.50); %Eosinophils 0.7 % (0.0-10.0); %Lymphocytes 32.7 % (21.0-51.0); %Monocytes 9.2 % (0.0-10.0); %Neutrophils 56.5 % (42.0-75.0); Hemoglobin 15.8 g/dL (14.0-18.0); Mean Corpuscular Hemoglobin 30.8 pg (27.0-31.0); Mean Corpuscular Volume 93.4 fl (78.0-98.0); Platelet Count 222 thou/uL (130-400); RBC Distribution Width 14.4 % (11.5-14.5); Red Blood Cell (RBC) Count 5.11 mill/uL (4.70-6.10); White Blood Cell (WBC) Count 6.3 thou/uL (4.8-10.8)
[2022-03-12 21:10] LABS: ALT (SGPT) 23 U/L (8-55); AST (SGOT) 16 U/L (5-34); Albumin 4.2 g/dL (3.5-5.0); Alkaline Phosphatase 81 U/L (40-110); Anion Gap 13 mmol/L (10-20); BUN (Urea Nitrogen) 13 mg/dL (8.4-25.7); Bilirubin, Total 0.3 mg/dL (0.2-1.2); Calc. Creatinine Clearance 0 mL/min (70-130); Calcium 9.4 mg/dL (7.8-10.44); Carbon Dioxide 26 mmol/L (22-29); Chloride 107 mmol/L (98-107); Estimated GFR 87; Globulin 2.9 g/dL (2.4-3.5); Glucose 87 mg/dL (70-105); Potassium 4.5 mmol/L (3.5-5.1); Protein, Total 7.1 g/dL (6.0-8.3); Sodium 141 mmol/L (136-145)
[2022-03-12] MEDS ORDERED: Lorazepam 2 MG/ML VIAL ONE (22:41)
[2022-03-12 23:44] LABS: Amphetamine Not Detected (NotDetected); Barbiturates Screen Detected (NotDetected); Benzodiazepine Screen Detected (NotDetected); Cocaine Metabolite Screen Not Detected (NotDetected); Methadone Not Detected (NotDetected); Methamphetamine Not Detected (NotDetected); Opiate Screen Detected (NotDetected); Oxycodone Screen Not Detected (NotDetected); Phencyclidine (PCP) Not Detected (NotDetected); THC/Cannabinoid Screen Detected (NotDetected); Tricyclic Screen Detected (NotDetected)
[2022-03-13 00:35] LABS: Bilirubin Negative (Negative); Blood, Urine Negative (Negative); Clarity Clear (Clear); Glucose, Urine (Dipstick) Normal (Negative); Ketone, Urine Negative (Negative); Leukocyte Negative Leu/uL (Negative); Nitrite Negative (Negative); Protein, Urine (Dipstick) Negative (Neg-Trace); Specific Gravity, Urine 1.009 (1.002-1.036); Urobilinogen Normal mg/dL (Less than 2)
[2022-03-13 07:12] LABS: SARS-CoV-2 NAA Rapid Test Not Detected (NotDetected)
[2022-03-13] MEDS: Sodium Chloride 0.9% 1,000 ML IV SCH ×2 (09:09→19:58)
[2022-03-13] MEDS ORDERED: Aspirin 325 MG TAB ONE (09:14)
[2022-03-13] MEDS ORDERED: Acetaminophen 325 MG TAB ONE (09:14)
[2022-03-13] MEDS: Acetaminophen 325 MG TAB PO SCH ×3 (09:19→22:54)
[2022-03-13] MEDS: Gabapentin 300 MG CAP PO SCH ×3 (09:21→22:55)
[2022-03-13] MEDS: Sertraline 100 MG TAB PO SCH (09:21)
[2022-03-13] MEDS: Aspirin 325 MG TAB PO SCH (09:21)
[2022-03-13] MEDS: Buprenorphine 8mg/Naloxone 2mg per 1 FILM SL SCH (09:50)
[2022-03-13] MEDS ORDERED: Naloxone HCl 0.4 mg/ml Vial ONE ×2 (16:28→16:41)
[2022-03-13] MEDS ORDERED: Naloxone HCl 0.4 mg/ml Vial IV SCH (16:45)
[2022-03-13 17:28] LABS: Actual Bicarbonate (HCO3a) 24.8 mEq/L (22-28); Analyzer IN Cardio ER; Base Excess (BEa) -3.2 mEq/L (-2.0 to +3.0); CO2 Tension 55.2 mmHg (35.0-45.0); Calcium, Ionized (arterial) 1.19 mmol/L (1.12-1.30); Carboxyhemoglobin (COHb) 0.1 gm% (0.0-3.0); Hemoglobin (Hb) 17.2 g/dL (14.0-18.0); O2 Tension (PaO2), arterial 207.1 mmHg (80.0-100.0); Potassium - ABG Lab 5.02 mmol/L (3.70-5.30); pH, Arterial 7.27 (7.35-7.45)
[2022-03-13 17:29] LABS: Puncture Site RRA
[2022-03-13 19:46] LABS: Actual Bicarbonate (HCO3a) 25.7 mEq/L (22-28); Base Excess (BEa) -3.6 mEq/L (-2.0 to +3.0); Calcium, Ionized (arterial) 1.21 mmol/L (1.12-1.30); Carboxyhemoglobin (COHb) 0.5 gm% (0.0-3.0); Hemoglobin (Hb) 16.6 g/dL (14.0-18.0); O2 Tension (PaO2), arterial 91.5 mmHg (80.0-100.0); Potassium - ABG Lab 4.74 mmol/L (3.70-5.30)
[2022-03-13 19:47] LABS: pH, Arterial 7.22 (7.35-7.45)
[2022-03-13 19:48] LABS: Puncture Site L RAD
[2022-03-13] MEDS ORDERED: Naloxone HCl 0.4 mg/ml Vial IV PRN ×2 (19:58→21:59)
[2022-03-13 21:53] LABS: Actual Bicarbonate (HCO3a) 27.6 mEq/L (22-28); Base Excess (BEa) 0.3 mEq/L (-2.0 to +3.0); CO2 Tension 54.6 mmHg (35.0-45.0); Carboxyhemoglobin (COHb) 0.4 gm% (0.0-3.0); Hemoglobin (Hb) 16.9 g/dL (14.0-18.0); O2 Tension (PaO2), arterial 157.5 mmHg (80.0-100.0); Potassium - ABG Lab 4.77 mmol/L (3.70-5.30); pH, Arterial 7.32 (7.35-7.45)
[2022-03-13] MEDS: Atorvastatin Calcium 40 MG TAB PO SCH (22:55)
[2022-03-14] MEDS: Acetaminophen 325 MG TAB PO SCH ×4 (05:27→21:09)
[2022-03-14] MEDS: Sodium Chloride 0.9% 1,000 ML IV SCH ×2 (06:04→15:23)
[2022-03-14 06:12] LABS: #Basophils 0.1 thou/uL (0.0-0.2); #Eosinphils 0.1 thou/uL (0.0-0.7); #Lymphocytes 2.4 thou/uL (1.20-3.40); #Monocytes 0.9 thou/uL (0.11-0.59); #Neutrophils 5.5 thou/uL (1.40-6.50); %Basophils 0.7 % (0.0-1.0); %Monocytes 9.9 % (0.0-10.0); %Neutrophils 61.4 % (42.0-75.0); Hemoglobin 15.4 g/dL (14.0-18.0); Mean Corpuscular HGB CONC 32.7 g/dL (32.0-36.0); Mean Corpuscular Hemoglobin 31.4 pg (27.0-31.0); Mean Corpuscular Volume 96.1 fl (78.0-98.0); Mean Platelet Volume 7.6 fL (7.4-10.4); Platelet Count 228 thou/uL (130-400); RBC Distribution Width 14.5 % (11.5-14.5)
[2022-03-14 06:33] LABS: ALT (SGPT) 31 U/L (8-55); AST (SGOT) 42 U/L (5-34); Alkaline Phosphatase 81 U/L (40-110); Anion Gap 13 mmol/L (10-20); BUN (Urea Nitrogen) 12 mg/dL (8.4-25.7); Bilirubin, Total 0.6 mg/dL (0.2-1.2); Calc. Creatinine Clearance 131 mL/min (70-130); Calcium 8.7 mg/dL (7.8-10.44); Carbon Dioxide 26 mmol/L (22-29); Chloride 105 mmol/L (98-107); Estimated GFR 98; Globulin 2.7 g/dL (2.4-3.5); Glucose 83 mg/dL (70-105); Potassium 4.5 mmol/L (3.5-5.1); Protein, Total 6.7 g/dL (6.0-8.3); Sodium 139 mmol/L (136-145)
[2022-03-14] MEDS: Aspirin 325 MG TAB PO SCH (08:51)
[2022-03-14] MEDS: Gabapentin 300 MG CAP PO SCH ×3 (08:51→21:10)
[2022-03-14] MEDS: Sertraline 100 MG TAB PO SCH (08:52)
[2022-03-14] MEDS: Buprenorphine 8mg/Naloxone 2mg per 1 FILM SL SCH (10:19)
[2022-03-14] MEDS ORDERED: SUMAtriptan Succinate 6 MG/0.5 ML VIAL SC PRN (10:44)
[2022-03-14] MEDS: Atorvastatin Calcium 40 MG TAB PO SCH (21:10)
[2022-03-14] MEDS: Promethazine 25 MG TAB PO PRN (22:44)
[2022-03-15] MEDS: Sodium Chloride 0.9% 1,000 ML IV SCH ×3 (02:00→20:30)
[2022-03-15] MEDS: Acetaminophen 325 MG TAB PO SCH ×5 (03:26→20:28)
[2022-03-15] MEDS: Gabapentin 300 MG CAP PO SCH ×3 (09:59→20:29)
[2022-03-15] MEDS: Aspirin 325 MG TAB PO SCH (09:59)
[2022-03-15] MEDS: Sertraline 100 MG TAB PO SCH (10:01)
[2022-03-15] MEDS: Buprenorphine 8mg/Naloxone 2mg per 1 FILM SL SCH (10:01)
[2022-03-15 14:42] LABS: Actual Bicarbonate (HCO3a) 31.6 mEq/L (22-28); Base Excess (BEa) 2.9 mEq/L (-2.0 to +3.0); Calcium, Ionized (arterial) 1.18 mmol/L (1.12-1.30); Carboxyhemoglobin (COHb) 0.8 gm% (0.0-3.0); Hemoglobin (Hb) 15.4 g/dL (14.0-18.0)
[2022-03-15] MEDS ORDERED: Cefdinir 300 MG CAP PO SCH (16:30)
[2022-03-15 19:35] LABS: Actual Bicarbonate (HCO3a) 31.2 mEq/L (22-28); Base Excess (BEa) 3.6 mEq/L (-2.0 to +3.0); CO2 Tension 59.3 mmHg (35.0-45.0); Calcium, Ionized (arterial) 1.15 mmol/L (1.12-1.30); Carboxyhemoglobin (COHb) 0.7 gm% (0.0-3.0); Hemoglobin (Hb) 15.1 g/dL (14.0-18.0); Potassium - ABG Lab 4.15 mmol/L (3.70-5.30); pH, Arterial 7.34 (7.35-7.45)
[2022-03-15 19:40] LABS: Puncture Site LRA
[2022-03-15] MEDS: Atorvastatin Calcium 40 MG TAB PO SCH (20:29)
[2022-03-15] MEDS: Fluticasone Propionate Nasal Spray 16 gm Bottle NASAL SCH (21:16)
[2022-03-15] MEDS: Oxymetazoline HCl 0.05% (30 ML BOT) NS SCH (21:16)
[2022-03-16] MEDS: Sodium Chloride 0.9% 1,000 ML IV SCH ×3 (02:51→20:11)
[2022-03-16] MEDS: Acetaminophen 325 MG TAB PO SCH ×4 (03:09→19:59)
[2022-03-16] MEDS ORDERED: SUMAtriptan Succinate 6 MG/0.5 ML VIAL SC PRN ×2 (05:45→09:45)
[2022-03-16] MEDS: Cefdinir 300 MG CAP PO SCH (09:50)
[2022-03-16] MEDS: Aspirin 325 MG TAB PO SCH (09:50)
[2022-03-16] MEDS: Sertraline 100 MG TAB PO SCH (09:50)
[2022-03-16] MEDS: Gabapentin 300 MG CAP PO SCH ×3 (09:51→19:54)
[2022-03-16] MEDS: Oxymetazoline HCl 0.05% (30 ML BOT) NS SCH ×2 (09:55→19:55)
[2022-03-16] MEDS: Fluticasone Propionate Nasal Spray 16 gm Bottle NASAL SCH ×2 (09:56→19:55)
[2022-03-16] MEDS: Atorvastatin Calcium 40 MG TAB PO SCH (19:55)
[2022-03-16 23:29] LABS: #Basophils 0.1 thou/uL (0.0-0.2); #Eosinphils 0.4 thou/uL (0.0-0.7); #Lymphocytes 1.9 thou/uL (1.20-3.40); #Monocytes 0.5 thou/uL (0.11-0.59); #Neutrophils 3.4 thou/uL (1.40-6.50); %Basophils 1.3 % (0.0-1.0); %Eosinophils 6.4 % (0.0-10.0); %Lymphocytes 30.5 % (21.0-51.0); %Monocytes 7.8 % (0.0-10.0); %Neutrophils 54.1 % (42.0-75.0); Hemoglobin 13.7 g/dL (14.0-18.0); Mean Corpuscular HGB CONC 33.1 g/dL (32.0-36.0); Mean Corpuscular Hemoglobin 31.3 pg (27.0-31.0); Mean Corpuscular Volume 94.6 fl (78.0-98.0); Mean Platelet Volume 7.4 fL (7.4-10.4); Platelet Count 199 thou/uL (130-400); Red Blood Cell (RBC) Count 4.37 mill/uL (4.70-6.10); White Blood Cell (WBC) Count 6.2 thou/uL (4.8-10.8)
[2022-03-17] MEDS: Promethazine 25 MG TAB PO PRN (00:21)
[2022-03-17 00:24] LABS: Actual Bicarbonate (HCO3a) 26.1 mEq/L (22-28); Base Excess (BEa) 1.5 mEq/L (-2.0 to +3.0); CO2 Tension 41.4 mmHg (35.0-45.0); Calcium, Ionized (arterial) 1.12 mmol/L (1.12-1.30); Carboxyhemoglobin (COHb) 0.9 gm% (0.0-3.0); Hemoglobin (Hb) 14.5 g/dL (14.0-18.0); O2 Tension (PaO2), arterial 69.6 mmHg (80.0-100.0); Potassium - ABG Lab 3.62 mmol/L (3.70-5.30); pH, Arterial 7.42 (7.35-7.45)
[2022-03-17 00:31] LABS: CO2 Tension 66.4 mmHg (35.0-45.0)
[2022-03-17] MEDS: Acetaminophen 325 MG TAB PO SCH ×4 (02:15→20:56)
[2022-03-17 06:20] LABS: #Eosinphils 0.4 thou/uL (0.0-0.7); #Lymphocytes 1.7 thou/uL (1.20-3.40); #Monocytes 0.6 thou/uL (0.11-0.59); #Neutrophils 5.1 thou/uL (1.40-6.50); %Basophils 0.4 % (0.0-1.0); %Eosinophils 5.2 % (0.0-10.0); %Lymphocytes 21.3 % (21.0-51.0); %Monocytes 7.7 % (0.0-10.0); %Neutrophils 65.4 % (42.0-75.0); Hemoglobin 14.7 g/dL (14.0-18.0); Mean Corpuscular HGB CONC 32.7 g/dL (32.0-36.0); Mean Corpuscular Hemoglobin 31.3 pg (27.0-31.0); Mean Corpuscular Volume 95.8 fl (78.0-98.0); Mean Platelet Volume 7.2 fL (7.4-10.4); Platelet Count 192 thou/uL (130-400); RBC Distribution Width 14.1 % (11.5-14.5); White Blood Cell (WBC) Count 7.8 thou/uL (4.8-10.8)
[2022-03-17 06:50] LABS: Anion Gap 11 mmol/L (10-20); BUN (Urea Nitrogen) 6 mg/dL (8.4-25.7); Calc. Creatinine Clearance 150 mL/min (70-130); Calcium 9.2 mg/dL (7.8-10.44); Carbon Dioxide 31 mmol/L (22-29); Chloride 102 mmol/L (98-107); Estimated GFR 102; Glucose 83 mg/dL (70-105); Potassium 4.1 mmol/L (3.5-5.1); Sodium 140 mmol/L (136-145)
[2022-03-17] MEDS: Cefdinir 300 MG CAP PO SCH (08:35)
[2022-03-17] MEDS: Aspirin 325 MG TAB PO SCH (08:35)
[2022-03-17] MEDS: Sertraline 100 MG TAB PO SCH (08:35)
[2022-03-17] MEDS: Gabapentin 300 MG CAP PO SCH ×3 (08:36→20:56)
[2022-03-17] MEDS: Fluticasone Propionate Nasal Spray 16 gm Bottle NASAL SCH ×2 (08:38→20:55)
[2022-03-17] MEDS: Oxymetazoline HCl 0.05% (30 ML BOT) NS SCH ×2 (08:42→20:55)
[2022-03-17] MEDS ORDERED: SUMAtriptan Succinate 6 MG/0.5 ML VIAL SC SCH (11:00)
[2022-03-17] MEDS: Sodium Chloride 0.9% 1,000 ML IV SCH ×2 (12:52→20:57)
[2022-03-17] MEDS: Atorvastatin Calcium 40 MG TAB PO SCH (20:56)
[2022-03-18] MEDS: Acetaminophen 325 MG TAB PO SCH ×4 (03:28→19:49)
[2022-03-18] MEDS: Sodium Chloride 0.9% 1,000 ML IV SCH ×2 (09:03→18:41)
[2022-03-18] MEDS: Carvedilol 3.125 MG TAB PO SCH ×2 (09:07→17:05)
[2022-03-18] MEDS: Aspirin 325 MG TAB PO SCH (09:08)
[2022-03-18] MEDS: Cefdinir 300 MG CAP PO SCH (09:08)
[2022-03-18] MEDS: Fluticasone Propionate Nasal Spray 16 gm Bottle NASAL SCH ×2 (09:08→19:50)
[2022-03-18] MEDS: Icosapent Ethyl 1 GM CAPSULE PO SCH ×2 (09:08→19:49)
[2022-03-18] MEDS: Gabapentin 300 MG CAP PO SCH ×3 (09:08→19:48)
[2022-03-18] MEDS: Oxymetazoline HCl 0.05% (30 ML BOT) NS SCH ×2 (09:09→19:50)
[2022-03-18] MEDS: Sertraline 100 MG TAB PO SCH (09:09)
[2022-03-18] MEDS: Mupirocin 2% Ointment 22 GM Tube TOP SCH ×2 (17:04→19:55)
[2022-03-18] MEDS: Atorvastatin Calcium 40 MG TAB PO SCH (19:49)
[2022-03-19] MEDS: Acetaminophen 325 MG TAB PO SCH ×4 (02:16→20:27)
[2022-03-19] MEDS: Sodium Chloride 0.9% 1,000 ML IV SCH ×3 (03:50→23:46)
[2022-03-19] MEDS: Cefdinir 300 MG CAP PO SCH (08:57)
[2022-03-19] MEDS: Carvedilol 3.125 MG TAB PO SCH ×2 (08:57→17:35)
[2022-03-19] MEDS: Gabapentin 300 MG CAP PO SCH ×3 (08:58→20:26)
[2022-03-19] MEDS: Aspirin 325 MG TAB PO SCH (08:59)
[2022-03-19] MEDS: Sertraline 100 MG TAB PO SCH (08:59)
[2022-03-19] MEDS: Icosapent Ethyl 1 GM CAPSULE PO SCH ×2 (09:00→20:26)
[2022-03-19] MEDS: Fluticasone Propionate Nasal Spray 16 gm Bottle NASAL SCH ×2 (09:01→20:26)
[2022-03-19] MEDS: Oxymetazoline HCl 0.05% (30 ML BOT) NS SCH ×2 (09:02→20:26)
[2022-03-19] MEDS: Mupirocin 2% Ointment 22 GM Tube TOP SCH ×3 (09:04→20:30)
[2022-03-19] MEDS ORDERED: SUMAtriptan Succinate 6 MG/0.5 ML VIAL SC SCH ×2 (17:15)
[2022-03-19] MEDS: Atorvastatin Calcium 40 MG TAB PO SCH (20:26)
[2022-03-20] MEDS: Acetaminophen 325 MG TAB PO SCH ×3 (02:46→14:50)
[2022-03-20] MEDS ORDERED: SUMAtriptan Succinate 6 MG/0.5 ML VIAL SC SCH ×2 (06:00→08:00)
[2022-03-20] MEDS: Carvedilol 3.125 MG TAB PO SCH ×2 (09:18→19:17)
[2022-03-20] MEDS: Gabapentin 300 MG CAP PO SCH ×2 (09:19→14:51)
[2022-03-20] MEDS: Aspirin 325 MG TAB PO SCH (09:19)
[2022-03-20] MEDS: Cefdinir 300 MG CAP PO SCH (09:20)
[2022-03-20] MEDS: Sertraline 100 MG TAB PO SCH (09:20)
[2022-03-20] MEDS: Fluticasone Propionate Nasal Spray 16 gm Bottle NASAL SCH (09:21)
[2022-03-20] MEDS: Icosapent Ethyl 1 GM CAPSULE PO SCH (09:22)
[2022-03-20] MEDS: Oxymetazoline HCl 0.05% (30 ML BOT) NS SCH (09:25)
[2022-03-20] MEDS: Mupirocin 2% Ointment 22 GM Tube TOP SCH ×2 (09:26→14:54)
[2022-03-20] MEDS: Sodium Chloride 0.9% 1,000 ML IV SCH (10:40)
[2022-03-20 19:32] VITALS: BP 113/73; TEMP 97.7
== END 2022-03-20 19:12 | disposition home or self-care (01) | DRG 896 ==
LOC: ERS 20:04 → ERHOLD 03-13 01:34 → OBSVTOIN 03-13 15:48 → IMCU/EMU 03-13 18:23 → T4-A 03-14 13:03
PROVIDERS: ADMIT Specialist; ATTEND Specialist
PROC: 5A09357 Assistance with Respiratory Ventilation, Less than 24 Consecutive Hours, Continuous Positive Airway Pressure (ICD-10-PCS; principal; 2022-03-16)
DX: F12.10 Cannabis abuse, uncomplicated (principal); G92.8 Other toxic encephalopathy; J96.22 Acute and chronic respiratory failure with hypercapnia; E66.2 Morbid (severe) obesity with alveolar hypoventilation; F19.10 Other psychoactive substance abuse, uncomplicated; F11.10 Opioid abuse, uncomplicated; F13.10 Sedative, hypnotic or anxiolytic abuse, uncomplicated; Z20.822 Contact with and (suspected) exposure to COVID-19; I25.10 Atherosclerotic heart disease of native coronary artery without angina pectoris; K21.9 Gastro-esophageal reflux disease without esophagitis; E78.00 Pure hypercholesterolemia, unspecified; G40.909 Epilepsy, unspecified, not intractable, without status epilepticus; F32.A Depression, unspecified; G47.00 Insomnia, unspecified; F51.04 Psychophysiologic insomnia; G89.4 Chronic pain syndrome; F41.9 Anxiety disorder, unspecified; G93.89 Other specified disorders of brain; Z95.1 Presence of aortocoronary bypass graft; Z98.890 Other specified postprocedural states; I25.2 Old myocardial infarction; Z88.0 Allergy status to penicillin; Z88.2 Allergy status to sulfonamides; Z79.82 Long term (current) use of aspirin; Z79.899 Other long term (current) drug therapy; Z68.31 Body mass index [BMI] 31.0-31.9, adult
CPT/HCPCS: 36415; 36416; 36600; 51701; 70450; 70551; 71045; 80048; 80053; 80306; 81003; 82805; 83605; 85025; 87040; 93005; 94660; 95712; 95819; 95957; 96361; 96374; G0378; J2060; J2310; J3030; J7050; Q0169; U0002

== ENCOUNTER 2022-04-24 07:47 | Outpatient (CLI) | payer BC ==
[2022-04-24] MEDS ORDERED: Iopamidol 370 76% 100 ML VIAL ONE (11:11)
== END 2022-04-24 07:48 | disposition home or self-care (01) ==
LOC: CT 07:47
PROVIDERS: ATTEND Internal Medicine
DX: G47.33 Obstructive sleep apnea (adult) (pediatric) (principal)
CPT/HCPCS: 71275

== ENCOUNTER 2022-12-14 19:00 | Outpatient (CLI) | payer MEDICARE, BC | END 2022-12-14 19:01 | disposition home or self-care (01) | LOC: SLEEPLAB 19:00 | PROVIDERS: ATTEND Internal Medicine | DX: G47.33 Obstructive sleep apnea (adult) (pediatric) (principal); R06.83 Snoring; G47.10 Hypersomnia, unspecified; I10 Essential (primary) hypertension; I25.10 Atherosclerotic heart disease of native coronary artery without angina pectoris; F43.10 Post-traumatic stress disorder, unspecified; G47.00 Insomnia, unspecified; F90.9 Attention-deficit hyperactivity disorder, unspecified type; S06.9XAD Unspecified intracranial injury with loss of consciousness status unknown, subsequent encounter | CPT/HCPCS: 95810 ==

== ENCOUNTER 2023-04-12 11:02 | Outpatient (CLI) | payer MEDICARE, BC | END 2023-04-12 11:03 | disposition home or self-care (01) | LOC: MRI 11:02 | DX: M54.50 Low back pain, unspecified (principal); M47.816 Spondylosis without myelopathy or radiculopathy, lumbar region; M51.36 Other intervertebral disc degeneration, lumbar region; M43.17 Spondylolisthesis, lumbosacral region; M48.07 Spinal stenosis, lumbosacral region; M48.061 Spinal stenosis, lumbar region without neurogenic claudication; M89.38 Hypertrophy of bone, other site | CPT/HCPCS: 72148 ==

== ENCOUNTER 2023-06-18 13:37 | Outpatient (CLI) | payer MEDICARE, BC | END 2023-06-18 13:38 | disposition home or self-care (01) | LOC: CT 13:37 | PROVIDERS: ATTEND Neurological Surgery | DX: M51.16 Intervertebral disc disorders with radiculopathy, lumbar region (principal); M51.37 Other intervertebral disc degeneration, lumbosacral region; M43.17 Spondylolisthesis, lumbosacral region; M48.07 Spinal stenosis, lumbosacral region | CPT/HCPCS: 72131 ==

== ENCOUNTER 2023-07-11 15:55 | Outpatient (CLI) | payer MEDICARE, BC ==
[2023-07-11 16:26] LABS: Hematocrit 47.1 % (38.8-50.0); Hemoglobin 16.4 g/dL (13.5-17.5); Mean Corpuscular HGB CONC 34.8 g/dL (32.0-36.0); Mean Corpuscular Hemoglobin 33.6 pg (27.0-33.0); Mean Corpuscular Volume 96.5 fl (81.2-95.1); Mean Platelet Volume 9.9 fl (7.4-10.4); Platelet Count 163 10x3/uL (150-450); RBC Distribution Width 13.5 % (11.5-14.5); Red Blood Cell (RBC) Count 4.88 10x6/uL (4.32-5.72); White Blood Cell (WBC) Count 6.3 10x3/uL (3.5-10.5)
[2023-07-11 17:14] LABS: Anion Gap 15 mmol/L (10-20); BUN (Urea Nitrogen) 17 mg/dL (8.4-25.7); Calc. Creatinine Clearance 0 mL/min (70-130); Carbon Dioxide 25 mmol/L (22-29); Chloride 104 mmol/L (98-107); Estimated GFR 74; Glucose 89 mg/dL (70-105); Potassium 4.4 mmol/L (3.5-5.1); Sodium 140 mmol/L (136-145)
== END 2023-07-11 15:56 | disposition home or self-care (01) ==
LOC: LABBT 15:55
PROVIDERS: ATTEND Neurological Surgery
DX: Z01.818 Encounter for other preprocedural examination (principal)
CPT/HCPCS: 80048; 85027; 93005; 93010

== ENCOUNTER 2023-07-13 05:53 | Day surgery (SDC) | payer MEDICARE, BC ==
[2023-07-11 16:28] VITALS: BMI 30.9
[2023-07-13] MEDS ORDERED: Fentanyl 250 MCG/5 ML VIAL ONE (06:23)
[2023-07-13] MEDS ORDERED: PROPOFOL 20 ML ONE (06:23)
[2023-07-13] MEDS ORDERED: Lidocaine 1% PF 5 ML VIAL ONE (06:23)
[2023-07-13] MEDS ORDERED: Rocuronium Bromide 10 MG/ML (10ML VIAL) ONE (06:23)
[2023-07-13] MEDS ORDERED: LevoFLOXacin D5W 500 mg (100 mL) BAG ONE (06:43)
[2023-07-13] MEDS ORDERED: Bupivacaine 0.25% HCL 30 ML VIAL ONE (06:48)
[2023-07-13] MEDS ORDERED: EPINEPHrine 1 MG/ML VIAL ONE (06:48)
[2023-07-13] MEDS ORDERED: Thrombin 5000 UNITS/5 ML VIAL ONE ×2 (06:49)
[2023-07-13] MEDS ORDERED: CEFAZOLIN 2 GM VIAL ONE (07:02)
[2023-07-13] MEDS ORDERED: Sodium Chloride 0.9% 100 ML ONE (07:02)
[2023-07-13] MEDS ORDERED: Clindamycin/D5W 900 mg/50 ml Premix Bag ONE (07:05)
[2023-07-13] MEDS ORDERED: Dexamethasone 20 MG/5 ML VIAL ONE (07:46)
[2023-07-13] MEDS ORDERED: Ondansetron PF 4 MG/2 ML Vial ONE (07:46)
[2023-07-13] MEDS ORDERED: ePHEDrine Sulfate 50 MG/10 ML VIAL ONE (07:56)
[2023-07-13] MEDS ORDERED: Morphine Sulfate 2 MG/ML SYRINGE SLOW IVP PRN (10:33)
[2023-07-13] MEDS ORDERED: HYDROmorphone 2 MG/ML VIAL SLOW IVP PRN (10:33)
[2023-07-13] MEDS ORDERED: Ondansetron HCl/PF 4 MG/2 ML Vial IVP PRN (10:33)
[2023-07-13] MEDS ORDERED: Promethazine HCl 25 MG/ML VIAL IM PRN (10:33)
[2023-07-13] MEDS ORDERED: PACU-Morphine 4MG/ML VIAL SLOW IVP PRN (10:33)
[2023-07-13] MEDS ORDERED: Glycopyrrolate 0.2 MG/ML 5 ML SYRINGE ONE (10:37)
[2023-07-13] MEDS ORDERED: Lidocaine 2% PF 5 ML VIAL ONE ×2 (10:37→10:39)
[2023-07-13] MEDS ORDERED: NEOSTIGMINE 3 MG/3 ML SYR 3 MG/3 ML SYRINGE ONE (10:37)
[2023-07-13] MEDS ORDERED: Tamsulosin HCl 0.4 MG CAP ONE (12:00)
[2023-07-13] MEDS ORDERED: fentaNYL 50 mcg/mL 1 mL Vial ONE (12:12)
[2023-07-13] MEDS ORDERED: Cyclobenzaprine 10 MG TAB ONE (14:09)
[2023-07-13] MEDS ORDERED: HYDROcodone/Acetaminophen 5/325 mg Tablet ONE (15:10)
== END 2023-07-13 16:17 | disposition home or self-care (01) ==
LOC: SDC 05:53
PROVIDERS: ATTEND Neurological Surgery
PROC: 0SG1071 Fusion of 2 or more Lumbar Vertebral Joints with Autologous Tissue Substitute, Posterior Approach, Posterior Column, Open Approach (ICD-10-PCS; principal; 2023-07-13)
PROC: 0SG3071 Fusion of Lumbosacral Joint with Autologous Tissue Substitute, Posterior Approach, Posterior Column, Open Approach (ICD-10-PCS; 2023-07-13)
DX: M47.26 Other spondylosis with radiculopathy, lumbar region (principal); M47.27 Other spondylosis with radiculopathy, lumbosacral region; M43.16 Spondylolisthesis, lumbar region; M43.17 Spondylolisthesis, lumbosacral region; I25.10 Atherosclerotic heart disease of native coronary artery without angina pectoris; E78.5 Hyperlipidemia, unspecified; G43.909 Migraine, unspecified, not intractable, without status migrainosus; Z79.899 Other long term (current) drug therapy; Z95.1 Presence of aortocoronary bypass graft; Z88.0 Allergy status to penicillin; Z88.2 Allergy status to sulfonamides
CPT/HCPCS: 20931; 20936; 22612; 22614; 22842; C1713 ×3; C1889 ×3; J0171; J3010; J0665; J1100; J1956; J2001; J2405; J2704; J3490

== ENCOUNTER 2025-01-20 10:03 | Outpatient (CLI) | payer MEDICARE, BC | END 2025-01-20 10:04 | disposition home or self-care (01) | LOC: MRI 10:03 | PROVIDERS: ATTEND Nurse Practitioner Family | DX: M54.12 Radiculopathy, cervical region (principal); M48.02 Spinal stenosis, cervical region | CPT/HCPCS: 72141; 76014 ==